=== PATIENT | male | born 1950 | race Caucasian/White ===

== ENCOUNTER 2025-03-31 14:48 | Emergency (ER) | payer MEDICARE ==
[2025-03-31 15:46] LABS: Basophils # (A) 0.06 10*3/uL (0.00-0.10); Basophils % (A) 0.7 %; Eosinophils % (A) 3.6 %; HGB 11.7 g/dL (13.0-17.0); Lymphocytes # (A) 1.27 10*3/uL (0.90-5.00); Lymphocytes % (A) 15.2 %; MCH 31.1 pg (27.0-32.0); MCHC 32.5 g/dL (32.0-37.0); MCV 95.7 fL (80.0-97.0); Monocytes # (A) 0.66 10*3/uL (0.20-1.00); Monocytes % (A) 7.9 %; Neutrophils # (A) 6.02 10*3/uL (1.80-7.70); Neutrophils % (A) 72.1 %; Platelet Count 246 10*3/uL (140-440); RBC 3.76 10*6/uL (4.40-5.60); RDW 14.1 % (11.5-14.5); WBC 8.35 10*3/uL (4.50-10.00)
[2025-03-31 16:00] LABS: INR 1.1 (<1.2); Prothrombin Time 12.1 sec (10.0-12.5)
[2025-03-31 16:04] LABS: Appearance,Urine Clear (Clear); Bilirubin,Urine Negative (Negative); Blood,Urine Negative (Negative); Color,Urine Colorless; Glucose,Urine (UA) Negative (Negative); Ketones,Urine Negative (Negative); Leukocyte Esterase,Urine Negative (Negative); Nitrite,Urine Negative (Negative); PH, Urine 5.5 (5.0-8.0); Protein,Urine Negative (Negative); Specific Gravity,Urine 1.011 (1.001-1.035); Urobilinogen,Urine <2.0 mg/dL (<2.0)
[2025-03-31 16:05] LABS: ALT 20 U/L (4-49); AST 28 U/L (17-59); African American GFR (CKD) 40 (>60 ml/min/1.73 sqM); Albumin 3.8 g/dL (3.5-5.0); Alkaline Phosphatase 38 U/L (38-126); Anion Gap 11 mmol/L; Blood Urea Nitrogen 52 mg/dL (9-20); Calcium 9.4 mg/dL (8.4-10.2); Carbon Dioxide 24 mmol/L (22-30); Chloride 108 mmol/L (98-107); Glucose 117 mg/dL (74-99); Non-African American GFR(CKD) 35 (>60 ml/min/1.73 sqM); Sodium 143 mmol/L (137-145); Total Bilirubin 0.6 mg/dL (0.2-1.3); Total Protein 6.5 g/dL (6.3-8.2)
[2025-03-31 16:15] LABS: NT-Pro-B-Type Natriuretic Pept 468 pg/mL
--- NOTE | 2025-03-31 16:29 | ED ---
General Adult HPI - General Chief complaint: Extremity Problem,Nontraumatic Stated complaint: Swollen Legs Both Time Seen by Provider: 03/31/25 15:15 Source: patient, family, RN notes reviewed, old records reviewed Mode of arrival: ambulatory - History of Present Illness Initial comments: Patient is a 74-year-old male who presents emergency department complaining of b ilateral lower extremity edema. Has been ongoing for 3 weeks. Was placed on Bumex by his PCP over the last couple weeks but no significant improvement. Denies any cough, congestion, shortness of breath, dyspnea, chest pain, abdominal pain, nausea, vomiting. Denies any leg pain. States the left leg is always slightly more swollen than the right leg. No leg edema prior to 3 weeks ago. No new medications. Is not on blood thinners. No recent long distance travel. No history of blood clots. Presents for further evaluation at this time after being sent from urgent care for rule out DVT. Denies any orthopnea, paroxysmal nocturnal dyspnea, exertional dyspnea, nonproductive cough. - Related Data Home Medications Medication Instructions Recorded Confirmed Albuterol Inhaler [Ventolin Hfa 2 puff INHALATION RT-QID PRN 03/31/25 03/31/25 Inhaler] Atorvastatin [Lipitor] 40 mg PO DAILY 03/31/25 03/31/25 Bumetanide [Bumex] 1 mg PO DAILY 03/31/25 03/31/25 Fenofibrate [Lofibra] 160 mg PO DAILY 03/31/25 03/31/25 Fluticasone/Umeclidin/Vilanter 1 puff INHALATION RT-DAILY 03/31/25 03/31/25 [Trelegy Ellipta 200-62.5-25] Ibuprofen [Motrin] 800 mg PO TID-W/MEALS PRN 03/31/25 03/31/25 Lansoprazole 30 mg PO DAILY 03/31/25 03/31/25 Potassium Chloride ER [K-Dur 10] 10 meq PO DAILY 03/31/25 03/31/25 allopurinoL [Zyloprim] 300 mg PO DAILY 03/31/25 03/31/25 amLODIPine BESYLATE/BENAZEPRIL 1 cap PO DAILY 03/31/25 03/31/25 [amLODIPine BESYLATE/BENAZEPRIL 5-10 mg] Allergies Allergy/AdvReac Type Severity Reaction Status Date / Time Penicillins Allergy Rash/Hives Verified 03/31/25 19:09 Review of Systems ROS Statement: Those systems with pertinent positive or pertinent negative responses have been documented in the HPI. Review of Systems: CONST: Denies fever EYES: Denies blurry vision ENT: Denies nasal congestion C/V: Denies Chest pain RESP: Denies shortness of breath GI: Denies abdominal pain : Denies dysuria SKIN: Denies rash. MSK: Endorses leg swelling NEURO: Denies headache ROS Other: All systems not noted in ROS Statement are negative. Past Medical History Past Medical History: Cancer, COPD, Hyperlipidemia, Hypertension Additional Past Medical History / Comment(s): pre diabetic History of Any Multi-Drug Resistant Organisms: None Reported Past Surgical History: Cholecystectomy, Hernia Repair, Prostate Surgery Past Psychological History: No Psychological Hx Reported Smoking Status: Never smoker Past Alcohol Use History: Occasional Past Drug Use History: None Reported General Exam - General Exam Comments Initial Comments: General: Appears in no acute distress. HEAD: Normal with no signs of head trauma. EYES: PERRLA, EOMI, conjunctiva normal, no discharge. ENT: Hearing grossly intact, normal oropharynx. RESPIRATORY: Clear breath sounds bilaterally. No wheezes, rales, or rhonchi. No hypoxia. No respiratory distress. C/V: Regular rate and rhythm. S1 and S2 auscultated, bilateral lower extremity pitting edema up to the level of the knees, left leg worse than right., pe ripheral pulses 2+ and intact throughout ABD: Abd is soft, nontender, nondistended EXT: Normal range of motion, no obvious deformity. Bilateral legs are nontender to palpation. SKIN: No rashes or lesions observed on exposed skin. No skin changes of the legs. No suggestion of cellulitis at this time. NEURO: Alert and oriented x 4. Cranial nerves II-XII intact. No focal sensory or strength deficits. Sensation intact. Neurovascular intact throughout. Course Vital Signs 03/31/25 03/31/25 03/31/25 14:59 16:52 18:00 Temperature 98.1 F Pulse Rate 55 L 50 L 51 L Respiratory 18 20 20 Rate Blood Pressure 114/68 105/66 123/72 O2 Sat by Pulse 96 91 L 92 L Oximetry Medical Decision Making - Medical Decision Making Was pt. sent in by a medical professional or institution (VINNY Pike, APPRAISAL MANAGER, urgent care, hospital, or residential...) When possible be specific @ -Sent from urgent care to evaluate for DVT Did you speak to anyone other than the patient for history (EMS, parent, family, police, friend...)? What history was obtained from this source @ -No Did you review nursing and triage notes (agree or disagree)? Why? @ -I reviewed and agree with nursing and triage notes Were old charts reviewed (outside hosp., previous admission, EMS record, old EKG, old radiological studies, urgent care reports/EKG's, residential records)? Report findings @ -No old charts were reviewed Differential Diagnosis (chest pain, altered mental status, abdominal pain women, abdominal pain men, vaginal bleeding, weakness, fever, dyspnea, syncope, headache, dizziness, GI bleed, back pain, seizure, CVA, palpatations, mental health, musculoskeletal)? @ -DVT, CHF, dependent edema. This list is not all-inclusive. EKG interpreted by me (3pts min.). @ -As above X-rays interpreted by me (1pt min.). @ -Chest x-ray did not reveal any signs of pulmonary vascular congestion or CHF. Elevated left hemidiaphragm. CT interpreted by me (1pt min.). @ -None done U/S interpreted by me (1pt. min.). @ -DVT ultrasound negative for DVT in bilateral lower extremities. Bladder and renal ultrasound shows mild hydronephrosis bilaterally. Likely related to his prostate valve. What testing was considered but not performed or refused? (CT, X-rays, U/S, labs)? Why? @ -None What meds were considered but not given or refused? Why? @ -None Did you discuss the management of the patient with other professionals (professionals i.e. VINNY Pike, APPRAISAL MANAGER, lab, RT, psych nurse, social media editor, door assembler, teacher, property portfolio officer, corrections caseworker)? Give summary @ -No Was smoking cessation discussed for >3mins.? @ -No Was critical care preformed (if so, how long)? @ -No Were there social determinants of health that impacted care today? How? (Homelessness, low income, unemployed, alcoholism, drug addiction, transportation, low edu. Level, literacy, decrease access to med. care, assisted, rehab)? @ -No Was there de-escalation of care discussed even if they declined (Discuss DNR or withdrawal of care, Hospice)? DNR status @ -No What co-morbidities impacted this encounter? (DM, HTN, Smoking, COPD, CAD, Cancer, CVA, ARF, Chemo, Hep., AIDS, mental health diagnosis, sleep apnea, m orbid obesity)? @ -None Was patient admitted / discharged? Hospital course, mention meds given and route, prescriptions, significant lab abnormalities, going to OR and other pertinent info. @ -Patient presents for bilateral lower extremity pitting edema for the last 3 weeks. Somewhat dependent on activity. Has no other symptoms. No concern for PE at this time. Will obtain venous duplex ultrasounds as well as chest x-ray, and laboratory studies evaluating for possible CHF or infectious cause. Exam is unremarkable except for the pitting edema. He was in agreement this plan. Vitals are within acceptable limits. Sent by urgent care. EKG shows no signs of acute ischemia.Imaging returned remarkable for mild symmetrical hydronephrosis likely related to prostate valve. No DVT. No evid ence of CHF on chest x-ray. Laboratory studies returned remarkable for what is likely chronic anemia with a hemoglobin of 11.7. Patient does have an ISAAC with a BUN of 52 and creatinine of 1.84. Patient given a 500 cc fluid bolus for this. Patient is also hypomagnesemic to 1.0 and was given IV magnesium. BNP within acceptable limits. Urine unremarkable. On reevaluation, I discussed the workup with the patient. I do suspect ISAAC is likely related to the Bumex use over the last few weeks. I have no clear diagnosis for the patient's lower extremity edema at this time other than dependent edema. No evidence of CHF, DVT, infection. He expressed understanding. I did recommend he hold his Bumex for the next 2 to 3 days as well as the potassium tablets with it. He should contact his PCP regarding his findings today. I did offer admission however we both agree that if patient feels comfortable going home with close follow-up I think this is reasonable. I did recommend he also take magnesium supplementation for a few days. He needs repeat laboratory studies next week and he understands this. He will follow-up with his PCP on Wednesday. I will give him urology follow-up as he has been unable to get in the office to see his normal urologist. Strict return precautions were discussed. I instructed the patient to follow up with their PCP in the next 1-3 days. I explained that the patient should return to the emergency department if they experience any worsening symptoms. Strict return precautions were discussed with the patient. The patient expressed understanding of these instructions. I answered all questions that the patient had. The patient was discharged home in good condition with their prescriptions and follow up information. Undiagnosed new problem with uncertain prognosis? @ -No Drug Therapy requiring intensive monitoring for toxicity (Heparin, Nitro, Insu mindy, Cardizem)? @ -No Were any procedures done? @ -No Diagnosis/symptom? @ -Dependent edema, ISAAC, hypomagnesemia Acute, or Chronic, or Acute on Chronic? @ -Acute Uncomplicated (without systemic symptoms) or Complicated (systemic symptoms)? @ -Uncomplicated Side effects of treatment? @ -None Exacerbation, Progression, or Severe Exacerbation] @ -No Poses a threat to life or bodily function? @ -Unlikely at this time - Lab Data Result diagrams: 03/31/25 15:34 03/31/25 15:34 Lab Results 03/31/25 03/31/25 03/31/25 Range/Units 15:29 15:34 15:34 WBC 8.35 (4.50-10.00) 10*3/uL RBC 3.76 L (4.40-5.60) 10*6/uL Hgb 11.7 L (13.0-17.0) g/dL Hct 36.0 L (39.6-50.0) % MCV 95.7 (80.0-97.0) fL MCH 31.1 (27.0-32.0) pg MCHC 32.5 (32.0-37.0) g/dL Plt Count 246 (140-440) 10*3/uL MPV 10.0 (9.5-12.2) fL Immature Gran % (Auto) 0.5 % Neutrophils % 72.1 % Lymphocytes % 15.2 % Monocytes % 7.9 % Eosinophils % 3.6 % Basophils % 0.7 % Immature Gran # 0.04 (0.00-0.04) 10*3/uL Neutrophils # 6.02 (1.80-7.70) 10*3/uL Lymphocytes # 1.27 (0.90-5.00) 10*3/uL Monocytes # 0.66 (0.20-1.00) 10*3/uL Eosinophils # 0.30 (0.04-0.35) 10*3/uL Basophils # 0.06 (0.00-0.10) 10*3/uL PT 12.1 (10.0-12.5) sec INR 1.1 (<1.2) APTT 30.0 (22.0-30.0) sec Sodium (137-145) mmol/L Potassium (3.5-5.1) mmol/L Chloride (98-107) mmol/L Carbon Dioxide (22-30) mmol/L Anion Gap mmol/L BUN (9-20) mg/dL Creatinine (0.66-1.25) mg/dL Est GFR (CKD-EPI)AfAm (>60 ml/min/1.73 sqM) Est GFR (CKD-EPI)NonAf (>60 ml/min/1.73 sqM) Glucose (74-99) mg/dL Calcium (8.4-10.2) mg/dL Magnesium (1.6-2.3) mg/dL Total Bilirubin (0.2-1.3) mg/dL AST (17-59) U/L ALT (4-49) U/L Alkaline Phosphatase (38-126) U/L NT-Pro-B Natriuret Pep pg/mL Total Protein (6.3-8.2) g/dL Albumin (3.5-5.0) g/dL Urine Color Colorless Urine Appearance Clear (Clear) Urine pH 5.5 (5.0-8.0) Ur Specific [place] 1.011 (1.001-1.035) Urine Protein Negative (Negative) Urine Glucose (UA) Negative (Negative) Urine Ketones Negative (Negative) Urine Blood Negative (Negative) Urine Nitrite Negative (Negative) Urine Bilirubin Negative (Negative) Urine Urobilinogen <2.0 (<2.0) mg/dL Ur Leukocyte Esterase Negative (Negative) 03/31/25 Range/Units 15:34 WBC (4.50-10.00) 10*3/uL RBC (4.40-5.60) 10*6/uL Hgb (13.0-17.0) g/dL Hct (39.6-50.0) % MCV (80.0-97.0) fL MCH (27.0-32.0) pg MCHC (32.0-37.0) g/dL Plt Count (140-440) 10*3/uL MPV (9.5-12.2) fL Immature Gran % (Auto) % Neutrophils % % Lymphocytes % % Monocytes % % Eosinophils % % Basophils % % Immature Gran # (0.00-0.04) 10*3/uL Neutrophils # (1.80-7.70) 10*3/uL Lymphocytes # (0.90-5.00) 10*3/uL Monocytes # (0.20-1.00) 10*3/uL Eosinophils # (0.04-0.35) 10*3/uL Basophils # (0.00-0.10) 10*3/uL PT (10.0-12.5) sec INR (<1.2) APTT (22.0-30.0) sec Sodium 143 (137-145) mmol/L Potassium 4.0 (3.5-5.1) mmol/L Chloride 108 H (98-107) mmol/L Carbon Dioxide 24 (22-30) mmol/L Anion Gap 11 mmol/L BUN 52 H (9-20) mg/dL Creatinine 1.84 H (0.66-1.25) mg/dL Est GFR (CKD-EPI)AfAm 40 (>60 ml/min/1.73 sqM) Est GFR (CKD-EPI)NonAf 35 (>60 ml/min/1.73 sqM) Glucose 117 H (74-99) mg/dL Calcium 9.4 (8.4-10.2) mg/dL Magnesium 1.0 L (1.6-2.3) mg/dL Total Bilirubin 0.6 (0.2-1.3) mg/dL AST 28 (17-59) U/L ALT 20 (4-49) U/L Alkaline Phosphatase 38 (38-126) U/L NT-Pro-B Natriuret Pep 468 pg/mL Total Protein 6.5 (6.3-8.2) g/dL Albumin 3.8 (3.5-5.0) g/dL Urine Color Urine Appearance (Clear) Urine pH (5.0-8.0) Ur Specific [place] (1.001-1.035) Urine Protein (Negative) Urine Glucose (UA) (Negative) Urine Ketones (Negative) Urine Blood (Negative) Urine Nitrite (Negative) Urine Bilirubin (Negative) Urine Urobilinogen (<2.0) mg/dL Ur Leukocyte Esterase (Negative) - EKG Data -: EKG Interpreted by Me EKG Comments: 12-lead Electrocardiogram Interpretation Note EKG was reviewed and interpreted by myself. 12-lead ECG performed at 1543 is interpreted by me as revealing sinus bradycardia at a rate of 52 beats per minute. Incomplete right bundle branch block. [place] interval is 190 ms, QRS duration is 180 ms, QTc is 476 ms. [place] is normal.. There were no ST or T wave abnormalities to suggest myocardial ischemia or injury. R wave progression across the precordium was satisfactory. By my interpretation this EKG is non- diagnostic for acute ischemia. Disposition Clinical Impression: Dependent edema, ISAAC (acute kidney injury), Hypomagnesemia Disposition: HOME SELF-CARE Condition: Good Additional Instructions: New diagnosis is dependent edema. On labs today, you have a mild ISAAC as well as low magnesium. Your magnesium level was 1.0. Today's creatinine was 1.8. He d id receive some IV fluids, and I do suspect that the Bumex is the cause of your acute kidney injury. Please stop taking this medication for the next 2 days and obtained follow-up laboratory studies with your PCP next week. I will provide you with urology follow-up information. You can also begin taking magnesium tablets for the next 2 days only and obtain repeat labs to check your magnesium level. Stop taking your potassium tablets while you are holding the Bumex. Resume them when you begin taking the Bumex again. Please return to the emergency department for any concerns. Your workup today was negative for DVT, congestive heart failure. No signs of infection of the legs today either. Is patient prescribed a controlled substance at d/c from ED?: No Referrals: Quentin Wright DO [Primary Care Provider] - 1-2 days Dipesh Mckeon MD [STAFF PHYSICIAN] - 1-2 days Time of Disposition: 19:14
--- NOTE | 2025-03-31 17:05 | XR ---
EXAMINATION TYPE: XR chest 2V DATE OF EXAM: 03/31/2025 4:20 PM COMPARISON: None CLINICAL INDICATION: Male, 74 years old with history of leg edema. eval for pulm vasc congestion.; PH H TECHNIQUE: XR chest 2V Frontal and lateral views of the chest. FINDINGS: Lungs/Pleura: Elevated left diaphragm. There is no evidence of pleural effusion, focal consolidation, or pneumothorax. Pulmonary vascularity: Unremarkable. Heart/mediastinum: Cardiomediastinal silhouette is unremarkable. Musculoskeletal: No acute osseous pathology. IMPRESSION: 1. No significant pulmonary vascular congestion. 2. No acute cardiopulmonary disease/process. 3. Elevated left diaphragm. [facility], , 03/31/2025 5:03 PM
[2025-03-31] MEDS: SODIUM CHLORIDE 0.9% 500 ML 500 ML IV ONE (17:24)
[2025-03-31] MEDS: MAGNESIUM SULFATE-D5W PMX 1 GM in DEXTROSE/WATER 1 100ML.BAG IVPB ONE (17:24)
--- NOTE | 2025-03-31 18:50 | US ---
EXAMINATION TYPE: US venous doppler duplex LE BI DATE OF EXAM: 03/31/2025 3:31 PM COMPARISON: NONE CLINICAL INDICATION: Male, 74 years old with history of eval for dvt; Bilateral leg swelling. No red ness. No injury. Not on blood thinners, Pain TECHNIQUE: The lower extremity deep venous system is examined utilizing real time linear array sonog concha with graded compression, color doppler sonography, and spectral doppler. SIDE PERFORMED: Bilateral FINDINGS: VESSELS IMAGED: Common Femoral Vein Deep Femoral Vein Greater Saphenous Vein * Femoral Vein Popliteal Vein Small Saphenous Vein * Proximal Calf Veins (* superficial vessels) Rouleaux flow seen bilaterally Right Leg: Negative for DVT, Color Doppler imaging shows patency of the vessels. Spectral waveforms are within normal limits. Left Leg: Negative for DVT, Color Doppler imaging shows patency of the vessels. Spectral waveforms a re within normal limits. IMPRESSION: No ultrasound evidence for deep venous thrombosis. [facility], , 03/31/2025 6:48 PM
--- NOTE | 2025-03-31 18:52 | US ---
EXAMINATION TYPE: US kidneys/renal and bladder DATE OF EXAM: 03/31/2025 COMPARISON: NONE CLINICAL INDICATION: Male, 74 years old with history of terence; Abnormal labs. Patient has penile pump. TECHNIQUE: Grayscale imaging of the bilateral kidneys and urinary bladder: FINDINGS: EXAM MEASUREMENTS: Right Kidney: 11.9 x 5.5 x 5.4 cm Left Kidney: 12.4 x 5.9 x 6.5 cm Right Kidney: Hydronephrosis Left Kidney: Hydronephrosis. Lateral anechoic lesion = 1.8 x 1.8 x 1.5 cm Bladder: Distended. Anechoic. Anterior penile pump seen. There is no evidence for hydronephrosis at this point in time. No nephrolithiasis is seen. No aristides s are identified. The urinary bladder is anechoic. IMPRESSION: 1. Bilateral hydronephrosis. Correlate for bladder outlet obstruction. 2. Left renal simple appearing cyst. 3. No evidence for renal calculus. [facility], , 03/31/2025 6:49 PM
[2025-03-31 19:31] VITALS: BP 135/93; PULSE 73; RESP 18; TEMP 98
== END 2025-03-31 19:22 | disposition home or self-care (01) ==
LOC: SUPCPDRO 14:48 → EC 14:48
DX: N17.9 Acute kidney failure, unspecified (principal); E83.42 Hypomagnesemia; I45.10 Unspecified right bundle-branch block; R00.1 Bradycardia, unspecified; N13.30 Unspecified hydronephrosis; Z88.0 Allergy status to penicillin
CPT/HCPCS: 36415; 93005; 83880; 80053; 83735; 85025; 85610; 85730; 81003; 71046; 76770; 93970; 99284; 96365; 96366; J3475

== ENCOUNTER → 2025-04-06 | Day surgery (SDC) | payer MEDICARE ==
[~2025-04-06] MED LIST: HYDROmorphone 0.5 MG/0.5 ML SYRINGE IVP PRN; LIDOCAINE 1% INJ 10MG/ML (20 ML MDV) ONE; MIDAZOLAM 2 MG/2 ML VIAL IV PRN; MIDAZOLAM 2 MG/2 ML VIAL ONE; PROPOFOL 10 MG/ML 20 ML VIAL IV ONE; fentaNYL (PF) 50 MCG/ML 2 ML AMP ONE
--- NOTE | 2025-04-06 14:03 | P.GSHP ---
History of Present Illness H&P Date: 04/06/25 Chief Complaint: Weak urinary stream The patient is a 74-year-old white male who underwent a robotic assisted laparoscopic prostatectomy in approximately 2011 for prostate cancer. He received adjuvant radiation therapy and androgen deprivation therapy. He experienced significant post prostatectomy urinary incontinence and underwent insertion of an artificial urinary sphincter shortly thereafter. Cystoscopy in 2019 revealed a urethral stricture, which was dilated. He now feels that it is more difficult to open his artificial sphincter, and also to void before it closes. As a result, he has been found to empty his bladder incompletely and has bilateral hydronephrosis. He denies dysuria and hematuria, but does report a weak urinary stream. - Constitutional Constitutional: Denies chills, Denies fever - Cardiovascular Cardiovascular: Reports high blood pressure - Genitourinary (Male) Genitourinary: Reports as per HPI Past Medical History Past Medical History: Cancer, COPD, Hyperlipidemia, Hypertension, Prostate Disorder Additional Past Medical History / Comment(s): pre diabetic, hx. prostate cancer 2009 History of Any Multi-Drug Resistant Organisms: None Reported Past Surgical History: Cholecystectomy, Hernia Repair, Prostate Surgery Additional Past Surgical History / Comment(s): robotic prostatectomy Past Anesthesia/Blood Transfusion Reactions: No Reported Reaction Smoking Status: Never smoker - Past Family History Father Family Medical History: Congestive Heart Failure (CHF) Mother Family Medical History: Cancer Additional Family Medical History / Comment(s): uterine cancer Brother(s) Family Medical History: Cancer Additional Family Medical History / Comment(s): lung cancer (smoker x 70 yrs) Medications and Allergies Home Medications Medication Instructions Recorded Confirmed Type Albuterol Inhaler [Ventolin Hfa 2 puff INHALATION RT-QID PRN 03/31/25 04/05/25 History Inhaler] Atorvastatin [Lipitor] 40 mg PO DAILY 03/31/25 04/05/25 History Fenofibrate [Lofibra] 160 mg PO DAILY 03/31/25 04/05/25 History Fluticasone/Umeclidin/Vilanter 1 puff INHALATION RT-DAILY 03/31/25 04/05/25 History [Trelegy Ellipta 200-62.5-25] Ibuprofen [Motrin] 800 mg PO TID-W/MEALS PRN 03/31/25 04/05/25 History Lansoprazole 30 mg PO DAILY 03/31/25 04/05/25 History allopurinoL [Zyloprim] 300 mg PO DAILY 03/31/25 04/05/25 History amLODIPine BESYLATE/BENAZEPRIL 1 cap PO DAILY 03/31/25 04/05/25 History [amLODIPine BESYLATE/BENAZEPRIL 5-10 mg] Allergies Allergy/AdvReac Type Severity Reaction Status Date / Time Penicillins Allergy Rash/Hives Verified 04/05/25 09:30 Surgical - Exam - General well developed, well nourished, no distress - Respiratory normal respiratory effort - Abdomen Abdomen: soft, non tender, no guarding, no rigid, no rebound - Psychiatric oriented to time, oriented to person, oriented to place, speech is normal, memory intact Assessment and Plan (1) Unspecified hydronephrosis Current Visit: Yes Status: Acute Code(s): N13.30 - UNSPECIFIED HYDRONEPHROSIS SNOMED Code(s): 65489978 (2) Unspecified urethral stricture, male, overlapping sites Current Visit: Yes Status: Acute Code(s): N35.916 - UNSPECIFIED URETHRAL STRICTURE, MALE, OVERLAPPING SITES SNOMED Code(s): 22552609758056935 (3) Unspecified anterior urethral stricture, male Current Visit: Yes Status: Acute Code(s): N35.914 - UNSPECIFIED ANTERIOR URETHRAL STRICTURE, MALE SNOMED Code(s): 37322184283276026 Plan: Patient will undergo cystourethroscopy to determine whether or not a urethral stricture is present, and also whether or not the artificial urinary sphincter is functioning properly. He will then likely undergo either urethral dilation or a direct visual internal urethrotomy (DVIU). This approach has been reviewed in detail with the patient. He has been made aware of potential risks, which include anesthesia, bleeding, infection, and damage to the artificial urinary sphincter.
[2025-04-06] MEDS: IV FLUID CONTINUATION 1,000 ML IV ONE (14:26)
[2025-04-06] MEDS: ONDANSETRON 4 MG/2 ML VIAL IVP ONE (14:30)
[2025-04-06] MEDS: DEXAMETHASONE SOD PHOSPHATE 4 MG/ML 1 ML VIAL IV ONE (14:30)
[2025-04-06 14:31] LABS: Glucose,Whole Blood 103 mg/dL (70-110)
[2025-04-06] MEDS: LACTATED RINGERS 1,000 ML IV SCH (14:31)
[2025-04-06] MEDS: ceFAZolin 2 GM in DEXTROSE 5% IN WATER 50 ML IVPB ONE (16:01)
[2025-04-06 16:58] VITALS: TEMP 97.2
[2025-04-06 18:56] VITALS: BP 110/72; PULSE 64; RESP 16
--- NOTE | 2025-04-24 07:06 | P.OP ---
Date of Procedure: 04/06/25 Preoperative Diagnosis: Urethral stricture Postoperative Diagnosis: Same Procedure(s) Performed: Cystoscopy, direct visual internal urethrotomy (DVIU) Anesthesia: TIERAA Surgeon: John Garcia Estimated Blood Loss (ml): 0 IV fluids (ml): 400 Pathology: none sent Condition: stable Disposition: PACU Indications for Procedure: The patient is a 74-year-old white male who underwent a robotic assisted laparoscopic prostatectomy in approximately 2011 for prostate cancer. He received adjuvant radiation therapy and androgen deprivation therapy. He experienced significant post prostatectomy urinary incontinence and underwent insertion of an artificial urinary sphincter shortly thereafter. Cystoscopy in 2019 revealed a urethral stricture, which was dilated. He now feels that it is more difficult to open his artificial sphincter, and also to void before it closes. As a result, he has been found to empty his bladder incompletely and has bilateral hydronephrosis. He denies dysuria and hematuria, but does report a weak urinary stream. Operative Findings: Distal bulbous urethral stricture in the area of the artificial urinary sphincter. Description of Procedure: The patient was taken to the operating room and placed in the dorsolithotomy position, with his legs supported in Wesley stirrups. The external genitalia was prepped and draped sterilely. The artificial urinary sphincter was deactivated. The 0 lens was used to advance the visual urethrotome into the urethra. A stricture was encountered within the distal bulbous urethra, measuring approximately 6 Turkish in caliber. Using the straight blade, the stricture was cautiously incised at the 12 o'clock position. This incision exposed the cuff of the artificial urinary sphincter. The visual urethrotome was advanced into the bladder. The prostate was absent. The external urinary sphincter did not appear to be intact. There was no vesical neck contracture. The bladder was examined in its entirety. Both ureteral orifices were of normal anatomic location and configuration, and clear urine effluxed from both. No tumors or foreign bodies were seen. The bladder was distended and heavily trabeculated. A Glidewire was passed through the visual urethrotome, which was removed. A scalpel was used to incise the tip of a 12 Turkish Alvarez catheter, which was inserted over the wire and connected to gravity drainage. The patient tolerated the procedure well was taken to the recovery room in stable condition.
== END | disposition home or self-care (01) ==
LOC: OR 13:56
PROVIDERS: ATTEND Urology
DX: N13.1 Hydronephrosis with ureteral stricture, not elsewhere classified (principal); N40.1 Benign prostatic hyperplasia with lower urinary tract symptoms; R39.12 Poor urinary stream; N39.498 Other specified urinary incontinence; I10 Essential (primary) hypertension; E78.5 Hyperlipidemia, unspecified; J44.9 Chronic obstructive pulmonary disease, unspecified; R73.03 Prediabetes; K21.9 Gastro-esophageal reflux disease without esophagitis; M10.9 Gout, unspecified; Z79.51 Long term (current) use of inhaled steroids; Z79.899 Other long term (current) drug therapy; Z85.46 Personal history of malignant neoplasm of prostate; Z90.79 Acquired absence of other genital organ(s); Z88.0 Allergy status to penicillin; Z80.1 Family history of malignant neoplasm of trachea, bronchus and lung
CPT/HCPCS: 52276; C1769; J2250; J1100; J0690; J2405; J2003; J3010; J2704

== ENCOUNTER 2025-04-07 09:25 | Inpatient (IN) | payer MEDICARE ==
--- NOTE | 2025-04-07 10:02 | ED ---
General Adult HPI - General Chief complaint: Fever Stated complaint: Post op fever Time Seen by Provider: 04/07/25 09:36 Source: patient, RN notes reviewed Mode of arrival: ambulatory Limitations: no limitations - History of Present Illness Initial comments: 74 year old male presents to the ED for evaluation of fevers and cough post-op day 1. He mentions he has had symptoms like this after surgeries in the past and has gone into sepsis. He denies any chest pain, lightheadedness, or SOB at this time. - Related Data Home Medications Medication Instructions Recorded Confirmed Albuterol Inhaler [Ventolin Hfa 2 puff INHALATION RT-QID PRN 03/31/25 04/06/25 Inhaler] Atorvastatin [Lipitor] 40 mg PO DAILY 03/31/25 04/06/25 Fenofibrate [Lofibra] 160 mg PO DAILY 03/31/25 04/06/25 Fluticasone/Umeclidin/Vilanter 1 puff INHALATION RT-DAILY 03/31/25 04/06/25 [Trelegy Ellipta 200-62.5-25] Ibuprofen [Motrin] 800 mg PO TID-W/MEALS PRN 03/31/25 04/06/25 Lansoprazole 30 mg PO DAILY 03/31/25 04/06/25 allopurinoL [Zyloprim] 300 mg PO DAILY 03/31/25 04/06/25 amLODIPine BESYLATE/BENAZEPRIL 1 cap PO DAILY 03/31/25 04/06/25 [amLODIPine BESYLATE/BENAZEPRIL 5-10 mg] Previous Rx's Medication Instructions Recorded Sulfamethox-Tmp 800-160Mg [Bactrim 1 tab PO Q12HR #14 tab 04/06/25 DS 800-160 mg] Allergies Allergy/AdvReac Type Severity Reaction Status Date / Time Penicillins Allergy Rash/Hives Verified 04/07/25 09:31 Review of Systems ROS Statement: Those systems with pertinent positive or pertinent negative responses have been documented in the HPI. ROS Other: All systems not noted in ROS Statement are negative. Past Medical History Past Medical History: Cancer, COPD, Hyperlipidemia, Hypertension, Prostate Disorder Additional Past Medical History / Comment(s): pre diabetic, hx. prostate cancer 2009 History of Any Multi-Drug Resistant Organisms: None Reported Past Surgical History: Cholecystectomy, Hernia Repair, Prostate Surgery Additional Past Surgical History / Comment(s): robotic prostatectomy Past Anesthesia/Blood Transfusion Reactions: No Reported Reaction Past Psychological History: No Psychological Hx Reported Smoking Status: Never smoker Past Alcohol Use History: Occasional Past Drug Use History: None Reported - Past Family History Father Family Medical History: Congestive Heart Failure (CHF) Mother Family Medical History: Cancer Additional Family Medical History / Comment(s): uterine cancer Brother(s) Family Medical History: Cancer Additional Family Medical History / Comment(s): lung cancer (smoker x 70 yrs) General Exam Limitations: no limitations General appearance: alert, in no apparent distress ENT exam: Present: normal exam, mucous membranes moist Respiratory exam: Present: normal lung sounds bilaterally. Absent: respiratory distress, wheezes, rales, rhonchi, stridor Cardiovascular Exam: Present: regular rate, normal rhythm, normal heart sounds. Absent: systolic murmur, diastolic murmur, rubs, gallop, clicks Course Vital Signs 04/07/25 04/07/25 04/07/25 09:28 10:43 12:07 Temperature 99.5 F Pulse Rate 65 68 63 Respiratory 18 23 18 Rate Blood Pressure 147/71 145/86 129/68 O2 Sat by Pulse 94 L 90 L 93 L Oximetry 04/07/25 04/07/25 13:13 14:05 Temperature 100.8 F H Pulse Rate 63 62 Respiratory 19 16 Rate Blood Pressure 119/61 111/57 O2 Sat by Pulse 93 L 97 Oximetry Medical Decision Making - Medical Decision Making Was pt. sent in by a medical professional or institution (, PA, ADMINISTRATIVE OFFICE MANAGER, urgent care, hospital, or prison...) When possible be specific @ -Your just Did you speak to anyone other than the patient for history (EMS, parent, family, police, friend...)? What history was obtained from this source @ -No Did you review nursing and triage notes (agree or disagree)? Why? @ -I reviewed and agree with nursing and triage notes Were old charts reviewed (outside hosp., previous admission, EMS record, old EKG, old radiological studies, urgent care reports/EKG's, prison records)? Report findings @ -No old charts were reviewed Differential Diagnosis (chest pain, altered mental status, abdominal pain women, abdominal pain men, vaginal bleeding, weakness, fever, dyspnea, syncope, headache, dizziness, GI bleed, back pain, seizure, CVA, palpatations, mental he alth, musculoskeletal)? @ -Differential Fever: Pneumonia, viral URI, endocarditis, myocarditis, pericarditis, otitis, sinusitis, peritonsillar Abscess, retropharyngeal Abscess, epiglottitis, peritonitis, appendicitis, Cathy cystitis, diverticulitis, hepatitis, colitis, UTI, PID, TOA, pyelonephritis, prostatitis, epididymitis, meningitis, encephalitis, pulmonary embolism, CVA, thyroid storm, pancreatitis, adrenal crisis, cavernous sinus thrombosis, this is not meant to be an all-inclusive list. EKG interpreted by me (3pts min.). @ -[None X-rays interpreted by me (1pt min.). @ -Chest x-ray shows mild haziness, possible pulmonary edema CT interpreted by me (1pt min.). @ -None done U/S interpreted by me (1pt. min.). @ -None done What testing was considered but not performed or refused? (CT, X-rays, U/S, labs)? Why? @ -None What meds were considered but not given or refused? Why? @ -None Did you discuss the management of the patient with other professionals (professionals i.e. , PA, ADMINISTRATIVE OFFICE MANAGER, lab, RT, psych nurse, medical social consultant, environmental control administrator, teacher, loan workout officer, casework specialist)? Give summary @ -Dr. Garcia evaluated the patient and recommended patient to be admitted for IV antibiotics IV fluids and surgery in the morning. Was smoking cessation discussed for >3mins.? @ -No Was critical care preformed (if so, how long)? @ -No Were there social determinants of health that impacted care today? How? (Homelessness, low income, unemployed, alcoholism, drug addiction, transportation, low edu. Level, literacy, decrease access to med. care, nursing home, rehab)? @ -No Was there de-escalation of care discussed even if they declined (Discuss DNR or withdrawal of care, Hospice)? DNR status @ -No What co-morbidities impacted this encounter? (DM, HTN, Smoking, COPD, CAD, Cancer, CVA, ARF, Chemo, Hep., AIDS, mental health diagnosis, sleep apnea, morbid obesity)? @ -None Was patient admitted / discharged? Hospital course, mention meds given and route, prescriptions, significant lab abnormalities, going to OR and other pertinent info. @ -[Admitted patient presented febrile status post urological procedure yesterday. Patient was given Rocephin blood culture urine culture and laboratory studies were obtained patient eval by urologist in the emergency department will be admitted for further IV antibiotics and surgery in the morning. Undiagnosed new problem with uncertain prognosis? @ -No Drug Therapy requiring intensive monitoring for toxicity (Heparin, Nitro, Insulin, Cardizem)? @ -No Were any procedures done? @ -No Diagnosis/symptom? @ -Fever status post urological procedure Acute, or Chronic, or Acute on Chronic? @ -Acute Uncomplicated (without systemic symptoms) or Complicated (systemic symptoms)? @ -Complicated Side effects of treatment? @ -No Exacerbation, Progression, or Severe Exacerbation? @ -No Poses a threat to life or bodily function? How? (Chest pain, [place], [place], pneumonia, PE, COPD, DKA, ARF, appy, cholecystitis, CVA, Diverticulitis, Homicidal, Suicidal, threat to staff... and all critical care pts) @ -Yes possible sepsis - Lab Data Result diagrams: 04/07/25 10:23 04/07/25 10:23 Lab Results 04/07/25 04/07/25 04/07/25 Range/Units 10:23 10:23 10:23 WBC 9.09 (4.50-10.00) 10*3/uL RBC 4.03 L (4.40-5.60) 10*6/uL Hgb 12.4 L (13.0-17.0) g/dL Hct 38.8 L (39.6-50.0) % MCV 96.3 (80.0-97.0) fL MCH 30.8 (27.0-32.0) pg MCHC 32.0 (32.0-37.0) g/dL Plt Count 209 (140-440) 10*3/uL MPV 10.8 (9.5-12.2) fL Immature Gran % (Auto) 0.3 % Neutrophils % 94.8 % Lymphocytes % 2.6 % Monocytes % 1.7 % Eosinophils % 0.4 % Basophils % 0.2 % Immature Gran # 0.03 (0.00-0.04) 10*3/uL Neutrophils # 8.61 H (1.80-7.70) 10*3/uL Lymphocytes # 0.24 L (0.90-5.00) 10*3/uL Monocytes # 0.15 L (0.20-1.00) 10*3/uL Eosinophils # 0.04 (0.04-0.35) 10*3/uL Basophils # 0.02 (0.00-0.10) 10*3/uL Sodium 142 (137-145) mmol/L Potassium 4.7 (3.5-5.1) mmol/L Chloride 107 (98-107) mmol/L Carbon Dioxide 26 (22-30) mmol/L Anion Gap 9 mmol/L BUN 30 H (9-20) mg/dL Creatinine 1.33 H (0.66-1.25) mg/dL Est GFR (CKD-EPI)AfAm 60 (>60 ml/min/1.73 sqM) Est GFR (CKD-EPI)NonAf 52 (>60 ml/min/1.73 sqM) Glucose 102 H (74-99) mg/dL Plasma Lactic Acid Alexys 1.6 (0.7-2.0) mmol/L Calcium 9.6 (8.4-10.2) mg/dL Total Bilirubin 0.6 (0.2-1.3) mg/dL AST 28 (17-59) U/L ALT 19 (4-49) U/L Alkaline Phosphatase 24 L (38-126) U/L Total Protein 6.8 (6.3-8.2) g/dL Albumin 3.9 (3.5-5.0) g/dL Disposition Clinical Impression: Fever, S/P urethral surgery Disposition: ADMITTED IP TO THIS HOSP Condition: Fair Time of Disposition: 13:38
[2025-04-07] MEDS: ACETAMINOPHEN TAB 325 MG TAB PO STA (10:32)
[2025-04-07] MEDS: IBUPROFEN 600 MG TAB PO STA (10:32)
[2025-04-07] MEDS: SODIUM CHLORIDE 0.9% 1,000 ML IV ONE (10:35)
[2025-04-07 10:39] LABS: Basophils # (A) 0.02 10*3/uL (0.00-0.10); Basophils % (A) 0.2 %; Eosinophils # (A) 0.04 10*3/uL (0.04-0.35); Eosinophils % (A) 0.4 %; HCT 38.8 % (39.6-50.0); HGB 12.4 g/dL (13.0-17.0); Lymphocytes # (A) 0.24 10*3/uL (0.90-5.00); Lymphocytes % (A) 2.6 %; MCH 30.8 pg (27.0-32.0); MCV 96.3 fL (80.0-97.0); Mean Platelet Volume 10.8 fL (9.5-12.2); Monocytes # (A) 0.15 10*3/uL (0.20-1.00); Monocytes % (A) 1.7 %; Neutrophils # (A) 8.61 10*3/uL (1.80-7.70); Neutrophils % (A) 94.8 %; Platelet Count 209 10*3/uL (140-440); RBC 4.03 10*6/uL (4.40-5.60); RDW 13.7 % (11.5-14.5); WBC 9.09 10*3/uL (4.50-10.00)
[2025-04-07 10:58] LABS: ALT 19 U/L (4-49); African American GFR (CKD) 60 (>60 ml/min/1.73 sqM); Albumin 3.9 g/dL (3.5-5.0); Anion Gap 9 mmol/L; Blood Urea Nitrogen 30 mg/dL (9-20); Calcium 9.6 mg/dL (8.4-10.2); Carbon Dioxide 26 mmol/L (22-30); Chloride 107 mmol/L (98-107); Glucose 102 mg/dL (74-99); Non-African American GFR(CKD) 52 (>60 ml/min/1.73 sqM); Sodium 142 mmol/L (137-145); Total Bilirubin 0.6 mg/dL (0.2-1.3); Total Protein 6.8 g/dL (6.3-8.2)
[2025-04-07 11:27] LABS: AST 28 U/L (17-59); Alkaline Phosphatase 24 U/L (38-126); Potassium 4.7 mmol/L (3.5-5.1)
[2025-04-07] MEDS: ONDANSETRON 4 MG/2 ML VIAL IVP STA (11:50)
[2025-04-07] MEDS: SODIUM CHLORIDE 0.9% 1,000 ML IV SCH (11:51)
--- NOTE | 2025-04-07 11:55 | XR ---
EXAMINATION TYPE: XR chest 2V DATE OF EXAM: 04/07/2025 11:37 AM COMPARISON: Chest radiographs from 03/31/2020 TECHNIQUE: XR chest 2V Frontal and lateral views of the chest. CLINICAL INDICATION:Male, 74 years old with history of fever; FINDINGS: Patient is rotated which limits evaluation. Lungs/Pleura: No pneumothorax or pleural effusion. Chronic elevation of the left hemidiaphragm. Incre ased bilateral perihilar opacities. Heart/mediastinum: Cardiomediastinal silhouette is unremarkable. Musculoskeletal: Multiple level degenerative disc disease changes seen throughout the spine. IMPRESSION: Increased perihilar opacities which may represent atypical pneumonia versus pulmonary vascular conges tion. [facility], , 04/07/2025 11:53 AM
[2025-04-07] MEDS ORDERED: NALOXONE 0.4 MG/ML 1 ML VIAL IV PRN (13:38)
[2025-04-07] MEDS ORDERED: ACETAMINOPHEN TAB 325 MG TAB PO PRN (13:38)
[2025-04-07] MEDS ORDERED: ONDANSETRON 4 MG/2 ML VIAL IVP PRN (13:38)
[2025-04-07 14:27] LABS: Appearance,Urine Clear (Clear); Bilirubin,Urine Negative (Negative); Blood,Urine Small (Negative); Color,Urine Colorless; Glucose,Urine (UA) Negative (Negative); Ketones,Urine Negative (Negative); Leukocyte Esterase,Urine Trace (Negative); Nitrite,Urine Negative (Negative); Protein,Urine Negative (Negative); RBC,Urine 44 /hpf (0-5); Specific Gravity,Urine 1.014 (1.001-1.035); Urobilinogen,Urine <2.0 mg/dL (<2.0); WBC,Urine 5 /hpf (0-5)
--- NOTE | 2025-04-07 15:20 | P.GSHP ---
History of Present Illness H&P Date: 04/07/25 Chief Complaint: Fever The patient is a 74-year-old white male who underwent a robotic assisted laparoscopic prostatectomy in approximately 2011 for prostate cancer. He receiv ed adjuvant radiation therapy and androgen deprivation therapy. He experienced significant post prostatectomy urinary incontinence and underwent insertion of an artificial urinary sphincter shortly thereafter. Cystoscopy in 2019 revealed a urethral stricture, which was dilated. He now feels that it is more difficult to open his artificial sphincter, and also to void before it closes. As a resu lt, he has been found to empty his bladder incompletely and has bilateral hydronephrosis. On April 06, he underwent cystourethroscopy. He was found to have a distal bulbous urethral stricture, which was gently incised using the visual urethrotome. The urethral wall was thin, and the artificial urinary sphincter cuff was exposed. A urethral catheter was placed, and the patient was discharged home on oral antibiotics. He had significant urine output overnight, and his lower extremity edema improved. However, he contacted me by phone this morning stating that he was febrile and was experiencing nausea. He was seen in the ER and subsequently admitted. - Constitutional Constitutional: Reports chills, Reports fever - Cardiovascular Cardiovascular: Reports high blood pressure - Gastrointestinal Gastrointestinal: Reports nausea, Denies abdominal pain - Genitourinary (Male) Genitourinary: Reports as per HPI Past Medical History Past Medical History: Cancer, COPD, Hyperlipidemia, Hypertension, Prostate Disorder Additional Past Medical History / Comment(s): pre diabetic, hx. prostate cancer 2009 History of Any Multi-Drug Resistant Organisms: None Reported Past Surgical History: Cholecystectomy, Hernia Repair, Prostate Surgery Additional Past Surgical History / Comment(s): robotic prostatectomy Past Anesthesia/Blood Transfusion Reactions: No Reported Reaction Past Psychological History: No Psychological Hx Reported Smoking Status: Never smoker Past Alcohol Use History: Occasional Past Drug Use History: None Reported - Past Family History Father Family Medical History: Congestive Heart Failure (CHF) Mother Family Medical History: Cancer Additional Family Medical History / Comment(s): uterine cancer Brother(s) Family Medical History: Cancer Additional Family Medical History / Comment(s): lung cancer (smoker x 70 yrs) Medications and Allergies Home Medications Medication Instructions Recorded Confirmed Type Albuterol Inhaler [Ventolin Hfa 2 puff INHALATION RT-QID PRN 03/31/25 04/06/25 History Inhaler] Atorvastatin [Lipitor] 40 mg PO DAILY 03/31/25 04/06/25 History Fenofibrate [Lofibra] 160 mg PO DAILY 03/31/25 04/06/25 History Fluticasone/Umeclidin/Vilanter 1 puff INHALATION RT-DAILY 03/31/25 04/06/25 History [Trelegy Ellipta 200-62.5-25] Ibuprofen [Motrin] 800 mg PO TID-W/MEALS PRN 03/31/25 04/06/25 History Lansoprazole 30 mg PO DAILY 03/31/25 04/06/25 History allopurinoL [Zyloprim] 300 mg PO DAILY 03/31/25 04/06/25 History amLODIPine BESYLATE/BENAZEPRIL 1 cap PO DAILY 03/31/25 04/06/25 History [amLODIPine BESYLATE/BENAZEPRIL 5-10 mg] Sulfamethox-Tmp 800-160Mg [Bactrim 1 tab PO Q12HR #14 tab 04/06/25 Rx DS 800-160 mg] Allergies Allergy/AdvReac Type Severity Reaction Status Date / Time Penicillins Allergy Rash/Hives Verified 04/07/25 09:31 Surgical - Exam Vital Signs Temp Pulse Resp BP Pulse Ox 99.5 F 65 18 147/71 94 L 04/07/25 09:28 04/07/25 09:28 04/07/25 09:28 04/07/25 09:28 04/07/25 09:28 - General well developed, well nourished, no distress - Respiratory normal respiratory effort - Abdomen Soft, non-tender, non-distended. - Genitourinary Normal phallus, normal scrotum, normal testes. - Psychiatric oriented to time, oriented to person, oriented to place, speech is normal, memory intact Results - Labs 04/07/25 10:23 04/07/25 10:23 Abnormal Lab Results - Last 24 Hours (Table) 04/07/25 04/07/25 04/07/25 Range/Units 10:23 10:23 14:05 RBC 4.03 L (4.40-5.60) 10*6/uL Hgb 12.4 L (13.0-17.0) g/dL Hct 38.8 L (39.6-50.0) % Neutrophils # 8.61 H (1.80-7.70) 10*3/uL Lymphocytes # 0.24 L (0.90-5.00) 10*3/uL Monocytes # 0.15 L (0.20-1.00) 10*3/uL BUN 30 H (9-20) mg/dL Creatinine 1.33 H (0.66-1.25) mg/dL Glucose 102 H (74-99) mg/dL Alkaline Phosphatase 24 L (38-126) U/L Urine Blood Small H (Negative) Ur Leukocyte Esterase Trace H (Negative) Urine RBC 44 H (0-5) /hpf Diabetes panel 04/07/25 Range/Units 10:23 Sodium 142 (137-145) mmol/L Potassium 4.7 (3.5-5.1) mmol/L Chloride 107 (98-107) mmol/L Carbon Dioxide 26 (22-30) mmol/L BUN 30 H (9-20) mg/dL Creatinine 1.33 H (0.66-1.25) mg/dL Glucose 102 H (74-99) mg/dL Calcium 9.6 (8.4-10.2) mg/dL AST 28 (17-59) U/L ALT 19 (4-49) U/L Alkaline Phosphatase 24 L (38-126) U/L Total Protein 6.8 (6.3-8.2) g/dL Albumin 3.9 (3.5-5.0) g/dL Calcium panel 04/07/25 Range/Units 10:23 Calcium 9.6 (8.4-10.2) mg/dL Albumin 3.9 (3.5-5.0) g/dL Pituitary panel 04/07/25 Range/Units 10:23 Sodium 142 (137-145) mmol/L Potassium 4.7 (3.5-5.1) mmol/L Chloride 107 (98-107) mmol/L Carbon Dioxide 26 (22-30) mmol/L BUN 30 H (9-20) mg/dL Creatinine 1.33 H (0.66-1.25) mg/dL Glucose 102 H (74-99) mg/dL Calcium 9.6 (8.4-10.2) mg/dL Adrenal panel 04/07/25 Range/Units 10:23 Sodium 142 (137-145) mmol/L Potassium 4.7 (3.5-5.1) mmol/L Chloride 107 (98-107) mmol/L Carbon Dioxide 26 (22-30) mmol/L BUN 30 H (9-20) mg/dL Creatinine 1.33 H (0.66-1.25) mg/dL Glucose 102 H (74-99) mg/dL Calcium 9.6 (8.4-10.2) mg/dL Total Bilirubin 0.6 (0.2-1.3) mg/dL AST 28 (17-59) U/L ALT 19 (4-49) U/L Alkaline Phosphatase 24 L (38-126) U/L Total Protein 6.8 (6.3-8.2) g/dL Albumin 3.9 (3.5-5.0) g/dL Assessment and Plan (1) Unspecified anterior urethral stricture, male Current Visit: No Status: Acute Code(s): N35.914 - UNSPECIFIED ANTERIOR URETHRAL STRICTURE, MALE SNOMED Code(s): [id number] Plan: The patient has been admitted and received ceftriaxone. He is scheduled to undergo removal of the artificial urinary sphincter on April 08, 2025 along with open insertion of a suprapubic cystostomy tube. This has been reviewed in detail with the patient and his . The rationale for this was discussed, as were potential risks which include anesthesia, bleeding, and infection. He will be referred to Dr. Porter Evans for urethral evaluation once he has recovered from surgery. It will then be determined whether or not he will require any additional treatment for urethral stricture disease, and consideration will then be given to replacement of the artificial urinary sphincter.
[2025-04-07 19:34] LABS: African American GFR (CKD) 51 (>60 ml/min/1.73 sqM); Anion Gap 7 mmol/L; Blood Urea Nitrogen 27 mg/dL (9-20); Calcium 8.9 mg/dL (8.4-10.2); Carbon Dioxide 23 mmol/L (22-30); Chloride 107 mmol/L (98-107); Glucose 123 mg/dL (74-99); Non-African American GFR(CKD) 44 (>60 ml/min/1.73 sqM); Potassium 3.8 mmol/L (3.5-5.1); Sodium 137 mmol/L (137-145)
[2025-04-08] MEDS ORDERED: NEOSTIGMINE 1 MG/ML 10 ML VIAL ONE (08:50)
[2025-04-08] MEDS ORDERED: ROCURONIUM 10 MG/ML (5 ML VIAL) IV ONE (08:50)
[2025-04-08] MEDS ORDERED: ALBUTEROL HFA INHALER INHALATION ONE (08:50)
[2025-04-08] MEDS ORDERED: PROPOFOL 10 MG/ML 20 ML VIAL IV ONE (08:50)
[2025-04-08] MEDS ORDERED: fentaNYL (PF) 50 MCG/ML 2 ML AMP ONE (08:50)
[2025-04-08] MEDS ORDERED: ONDANSETRON 4 MG/2 ML VIAL ONE (08:50)
[2025-04-08] MEDS ORDERED: LIDOCAINE 1% INJ 10MG/ML (20 ML MDV) ONE (08:50)
[2025-04-08] MEDS ORDERED: ACETAMINOPHEN IV (For NPO) 1,000 MG/100 ML VIAL ONE (08:50)
[2025-04-08] MEDS ORDERED: PHENYLEPHRINE 10 MG/ML VIAL ONE (08:50)
[2025-04-08] MEDS ORDERED: GLYCOPYRROLATE 0.2 MG/ML 2 ML VIAL ONE (08:50)
[2025-04-08] MEDS: SODIUM CHLORIDE 0.9% 1,000 ML IV ONE ×2 (08:55→10:07)
[2025-04-08] MEDS: ceFAZolin 1,000 MG in SODIUM CHLORIDE 0.9% 1,000 ML IRRIGATION ONE (10:12)
[2025-04-08] MEDS ORDERED: SODIUM CHLORIDE 0.9% 1,000 ML BAG ONE (10:39)
[2025-04-08] MEDS: IPRATROPIUM-ALBUTEROL 3 ML NEB INHALATION STA (13:12)
--- NOTE | 2025-04-08 20:07 | P.OP ---
Date of Procedure: 04/08/25 Preoperative Diagnosis: Urethral stricture, urinary retention, infected artificial urinary sphincter Postoperative Diagnosis: Same Procedure(s) Performed: Removal of artificial urinary sphincter, open insertion of suprapubic cystostomy tube Anesthesia: JEREMIAH Surgeon: John Garcia Estimated Blood Loss (ml): 20 IV fluids (ml): 800 Pathology: none sent Condition: stable Disposition: PACU Indications for Procedure: The patient is a 74-year-old white male who underwent a robotic assisted laparoscopic prostatectomy in approximately 2011 for prostate cancer. He received adjuvant radiation therapy and androgen deprivation therapy. He experienced significant post prostatectomy urinary incontinence and underwent insertion of an artificial urinary sphincter shortly thereafter. Cystoscopy in 2019 revealed a urethral stricture, which was dilated. He now feels that it is more difficult to open his artificial sphincter, and also to void before it closes. As a result, he has been found to empty his bladder incompletely and has bilateral hydronephrosis. On April 06, he underwent cystourethroscopy. He was found to have a distal bulbous urethral stricture, which was gently incised using the visual urethrotome. The urethral wall was thin, and the artificial urinary sphincter cuff was exposed. A urethral catheter was placed, and the patient was discharged home on oral antibiotics. He had significant urine output overnight, and his lower extremity edema improved. However, he developed a fever and was admitted. He has received IV antibiotics and now comes for removal of the artificial urinary sphincter and urethral catheter, with placement of a suprapubic cystostomy tube. Operative Findings: Successful removal of artificial urinary sphincter with SP tube insertion. Description of Procedure: The patient was taken to the operating room and placed in the dorsolithotomy position, with his legs supported in Wesley prescription. The external genitalia and abdomen were prepped and draped sterilely. The Alvarez catheter was left in place, also prepped with Betadine solution. The scalpel was used to make a midline incision through the posterior scrotum extending into the perineum. Dissection was continued in the midline using the Bovie electrocautery, down to the artificial urinary sphincter cuff. The cuff was exposed and from the urethra. The tubing to the cuff was then dissected toward the right scrotal neck. This dissection was continued as far as possible, and attention was then paid to the pump. Dissection using the Bovie electrocautery exposed the pump, and this also was dissected toward the right scrotal neck. The scalpel was used to make a transverse skin incision just above the pubis. Through this incision, it was possible to identify the tubing going to the fluid reservoir. The tubing was dissected away from adjacent tissues. The tubing was then cut, allowing the cuff and pump to be removed. The reservoir was deflated, and a small opening was made in the fascia, allowing removal of the reservoir. Attention was then paid to placement of the suprapubic cystostomy tube. The linea alba was incised in the midline via a vertical incision. Dissection was carried down through the pseudocapsule of the reservoir, toward the bladder. 0.9 normal saline was injected through the Alvarez catheter to distend the bladder, but fluid tended to leak out per urethra alongside the catheter. The peritoneum was entered, and it was evident at this time that the peritoneum extended very far distally, essentially draping over the bladder. Using a [place] of sharp and blunt dissection, the peritoneum was mobilized off of the anterior bladder wall, particularly on the right side. A small skin incision was made in the midline, approximately 2 cm cephalad to the transverse skin incision. An 18 [place] Alvarez catheter was passed through the anterior abdominal wall. A small cystotomy incision was then made in the right anterior bladder wall, through which the Alvarez catheter was advanced and the Alvarez catheter balloon inflated. The cystotomy incision was then closed using 3-0 Vicryl suture in a running fashion on the mucosa, and the muscle was closed using a 2-0 Vicryl suture in a running fashion. 3-0 Vicryl suture was then placed in the bladder wall around the catheter in a pursestring fashion. Next, the 2 peritoneal incisions were closed using 3-0 Vicryl suture in a running fashion. Thus, the suprapubic tube was completely extraperitoneal. After placing the suprapubic tube, the urethral catheter was removed. Both the abdominal wound and the perineal wound were irrigated with antibiotic solution. A Eugene drain was left within the space of Retzius and brought out through a separate stab incision to the right of the midline. A second Eugene drain was left within the scrotum and brought out through the anterior aspect of the scrotal perineal incision. The abdominal [place] drain was secured to the skin using 2-0 silk suture. The perineal drain was secured to the skin using 3-0 Vicryl suture. The linea alba was closed using #1 PDS suture in a running fashion. Angeline's fascia was reapproximated using 3-0 Vicryl suture in a running fashion. The skin was closed using naun. The perineal wound was closed by reapproximating the subcutaneous tissues in the midline using 3-0 Vicryl suture in a running fashion. The skin was then closed using 3-0 Vicryl suture in a running subcuticular fashion. A sterile gauze dressing was applied over the abdominal incision. Surgical fluffs were placed over the perineal incision, followed by scrotal support. All sponge and needle counts were correct. The suprapubic tube was connected to gravity drainage, and was draining clear urine. The patient tolerated the procedure well and was taken to the recovery in stable condition.
[2025-04-08] MEDS ORDERED: ALBUTEROL NEBULIZED 2.5 MG/3 ML INHALATION PRN (20:29)
[2025-04-08] MEDS ORDERED: IBUPROFEN 800 MG TAB PO PRN (20:29)
[2025-04-08] MEDS: ATORVASTATIN 40 MG TAB PO SCH (21:12)
[2025-04-08] MEDS: amLODIPine 5 MG TAB PO SCH (21:12)
[2025-04-08] MEDS: FENOFIBRATE 160 MG TAB PO SCH (21:12)
[2025-04-08] MEDS: PANTOPRAZOLE 40 MG TABLET PO SCH (21:13)
[2025-04-08] MEDS: allopurinoL 300 MG TAB PO SCH (21:13)
[2025-04-08] MEDS: lisinopriL 10 MG TAB PO SCH (21:13)
[2025-04-09] MEDS: HYDROmorphone 1 MG/ML 1 ML SYRINGE IVP PRN (03:50)
[2025-04-09] MEDS: TIOTROPIUM 2.5 MCG INHALER INHALATION SCH (05:57)
[2025-04-09] MEDS: SYMBICORT 160-4.5 MCG INHALER INHALATION SCH (05:58)
[2025-04-09 10:17] LABS: Basophils # (A) 0.03 X 10*3/uL (0.00-0.10); Basophils % (A) 0.8 %; Eosinophils # (A) 0 X 10*3/uL (0.04-0.35); Eosinophils % (A) 0 %; HCT 38.4 % (39.6-50.0); Lymphocytes # (A) 0.31 X 10*3/uL (0.90-5.00); Lymphocytes % (A) 8.2 %; MCH 30.6 pg (27.0-32.0); MCHC 31.3 g/dL (32.0-37.0); Mean Platelet Volume 11.8 FL (9.5-12.2); Monocytes # (A) 0.12 X 10*3/uL (0.20-1.00); Monocytes % (A) 3.2 %; NRBC Per 100 WBC 0 X 10*3/uL (0.00-0.01); Platelet Count 136 X 10*3/uL (140-440); RBC 3.92 X 10*6/uL (4.40-5.60); RDW 14.2 % (11.5-14.5); WBC 3.79 X 10*3/uL (4.50-10.00)
[2025-04-09 10:29] LABS: BUN/Creat Ratio 13.13 Ratio (12.00-20.00); Blood Urea Nitrogen 19.7 mg/dL (9.0-27.0); Calcium 7.6 mg/dL (8.7-10.3); Carbon Dioxide 20.2 mmol/L (21.6-31.8); Chloride 108 mmol/L (96-109); Glucose 105 mg/dL (70-110); Potassium 3.6 mmol/L (3.5-5.5); Sodium 139 mmol/L (135-145)
--- NOTE | 2025-04-09 12:54 | P.PN ---
Subjective Progress Note Date: 04/09/25 Principal diagnosis: POD #1, s/p removal of AUS with SP tube placement The patient is feeling somewhat better today, though weak. He experienced difficulty ambulating yesterday and has not yet attempted today. He is not voiding per urethra. He reports constipation. Objective - Vital Signs Vital signs: Vital Signs Temp 98.8 F 04/09/25 07:18 Pulse 74 04/09/25 07:18 Resp 18 04/09/25 07:18 BP 129/78 04/09/25 07:18 Pulse Ox 92 L 04/09/25 07:18 FiO2 Intake & Output 04/08/25 04/09/25 04/09/25 18:59 06:59 18:59 Intake Total 1921 1620 Output Total 20 1175 Balance 1901 445 Intake: IV 1401 Intake, IV Titration 520 Amount Sodium Chloride 0.9% 1, 520 000 ml @ 130 mls/hr IV . Q7H42M [facility] Rx#:[id number] Oral 1620 Output: Urine 1175 Estimated Blood Loss 20 Other: Voiding Method Indwelling Catheter Indwelling Catheter - Constitutional General appearance: Present: average body habitus, cooperative, no acute distress - Cardiovascular Details: Lower extremity edema has virtually resolved. - Gastrointestinal Gastrointestinal Comment(s): Soft, non-distended. Incision clean, dry, and intact. Minimal serosanguineous [place] drainage. - Genitourinary Genitourinary Comment(s): Incision clean, dry, and intact. Mild serosanguineous [place] drainage. No significant scrotal edema. Testes normal. - Labs CBC & Chem 7: 04/09/25 06:09 04/09/25 06:09 Labs: Abnormal Lab Results - Last 24 Hours (Table) 04/09/25 04/09/25 Range/Units 06:09 06:09 WBC 3.79 L (4.50-10.00) X 10*3/uL RBC 3.92 L (4.40-5.60) X 10*6/uL Hgb 12.0 L (13.0-17.0) g/dL Hct 38.4 L (39.6-50.0) % MCV 98.0 H (80.0-97.0) FL MCHC 31.3 L (32.0-37.0) g/dL Plt Count 136 L (140-440) X 10*3/uL Lymphocytes # 0.31 L (0.90-5.00) X 10*3/uL Monocytes # 0.12 L (0.20-1.00) X 10*3/uL Eosinophils # 0 L (0.04-0.35) X 10*3/uL Carbon Dioxide 20.2 L (21.6-31.8) mmol/L Est GFR (CKD-EPI) 48 L (>=60) Calcium 7.6 L (8.7-10.3) mg/dL Microbiology - Last 24 Hours (Table) 04/07/25 10:05 Blood Culture - Preliminary Blood 04/07/25 10:23 Blood Culture - Preliminary Blood Assessment and Plan (1) Unspecified anterior urethral stricture, male Current Visit: No Status: Acute Code(s): N35.914 - UNSPECIFIED ANTERIOR URETHRAL STRICTURE, MALE SNOMED Code(s): 40865170388956350 Plan: Continue Rocephin. It was explained to the patient that his constipation is likely due to an ileus, and MiraLAX has been prescribed. Increase ambulation.
[2025-04-09] MEDS ORDERED: DOCUSATE 100 MG CAP PO SCH (13:00)
[2025-04-09] MEDS: polyethylene glycoL 3350 17 GM POWD.PACK PO SCH (13:20)
--- NOTE | 2025-04-09 14:07 | P.CONS ---
History of Present Illness - Reason for Consult Consult date: 04/09/25 Medical management - History of Present Illness History of present illness; 74-year-old gentleman with past medical history significant for prostate cancer status post laparoscopic prostatectomy in 2011, who recently underwent cystourethroscopy on April 06 and was found o have a distal bulbous urethral stricture, which was gently incised using the visual urethrotome. Patient was discharged by urology on oral antibiotics. Patient stated ever since her discharge he started having nausea and was having fevers at home. There was no complaint of hematuria..There is no complaint of shortness of breath. Patient denies any palpitation. There is no complaint of orthopnea or PND. Denies any nausea, vomiting abdominal pain. Patient denies any complaint of dizziness. There is no complaint of headache. Because of the symptoms, patient came to the ER Initial lab work done in the ER showed WBC 9.9, hemoglobin 12.4, platelet count 209, sodium 142, potassium 4.7, BUN 30, creatinine 1.33 Chest x-ray done in the ER Increased perihilar opacities may present atypical pneumonia versus pulmonary congestion Patient admitted to urology REVIEW OF SYSTEMS: CONSTITUTIONAL: As mentioned above HEENT: No recent visual problems or hearing problems. Denied any sore throat. CARDIOVASCULAR: No chest pain, orthopnea, PND, no palpitations, no syncope. PULMONARY: No shortness of breath, no cough, no hemoptysis. GASTROINTESTINAL: No diarrhea, no nausea, no vomiting, no abdominal pain. NEUROLOGICAL: No headaches, no weakness, no numbness. HEMATOLOGICAL: Denies any bleeding or petechiae. GENITOURINARY: As mentioned above MUSCULOSKELETAL/RHEUMATOLOGICAL: Denies any joint pain, swelling, or any muscle pain. ENDOCRINE: Denies any polyuria or polydipsia. The rest of the 14-point review of systems is negative. PHYSICAL EXAMINATION: GENERAL: The patient is alert and oriented x3, not in any acute distress. Well developed, well nourished. HEENT: Pupils are round and equally reacting to light. EOMI. No scleral icterus. No conjunctival pallor. Normocephalic, atraumatic. No pharyngeal erythema. No thyromegaly. CARDIOVASCULAR: S1 and S2 present. No murmurs, rubs, or gallops. PULMONARY: Chest is clear to auscultation, no wheezing or crackles. ABDOMEN: Soft, nontender, nondistended, normoactive bowel sounds. No palpable organomegaly. MUSCULOSKELETAL: No joint swelling or deformity. EXTREMITIES: No cyanosis, clubbing, or pedal edema. NEUROLOGICAL: Gross neurological examination did not reveal any focal deficits. SKIN: No rashes. Assessment and plan Postoperative fevers Bacterial pneumonia Urethral stricture Monitor vital signs Monitor CBC Monitor CMP Follow-up blood cultures Follow-up on urine culture Continue IV Rocephin, added doxycycline DC fluids Consult ID Labs and medication were reviewed.. Continue same treatment. Continue with symptomatic treatment. Resume home medication. Monitor labs and vitals. DVT and GI prophylaxis. Further recommendations as per clinical course of the patient Dictation was produced using [employer] dictation software. please excuse any grammatical, word or spelling errors. Past Medical History Past Medical History: Cancer, COPD, Hyperlipidemia, Hypertension, Prostate Disorder Additional Past Medical History / Comment(s): pre diabetic, hx. prostate cancer 2009 History of Any Multi-Drug Resistant Organisms: None Reported Past Surgical History: Cholecystectomy, Hernia Repair, Prostate Surgery Additional Past Surgical History / Comment(s): robotic prostatectomy Past Anesthesia/Blood Transfusion Reactions: No Reported Reaction Past Psychological History: No Psychological Hx Reported Smoking Status: Never smoker Past Alcohol Use History: Occasional Past Drug Use History: None Reported - Past Family History Father Family Medical History: Congestive Heart Failure (CHF) Mother Family Medical History: Cancer Additional Family Medical History / Comment(s): uterine cancer Brother(s) Family Medical History: Cancer Additional Family Medical History / Comment(s): lung cancer (smoker x 70 yrs) Medications and Allergies Home Medications Medication Instructions Recorded Confirmed Type Albuterol Inhaler [Ventolin Hfa 2 puff INHALATION RT-QID PRN 03/31/25 04/07/25 History Inhaler] Atorvastatin [Lipitor] 40 mg PO DAILY 03/31/25 04/07/25 History Fenofibrate [Lofibra] 160 mg PO DAILY 03/31/25 04/07/25 History Fluticasone/Umeclidin/Vilanter 1 puff INHALATION RT-DAILY 03/31/25 04/07/25 History [Trelegy Ellipta 200-62.5-25] Ibuprofen [Motrin] 800 mg PO TID-W/MEALS PRN 03/31/25 04/07/25 History Lansoprazole 30 mg PO DAILY 03/31/25 04/07/25 History allopurinoL [Zyloprim] 300 mg PO DAILY 03/31/25 04/07/25 History amLODIPine BESYLATE/BENAZEPRIL 1 cap PO DAILY 03/31/25 04/07/25 History [amLODIPine BESYLATE/BENAZEPRIL 5-10 mg] Sulfamethox-Tmp 800-160Mg [Bactrim 1 tab PO Q12HR #14 tab 04/06/25 04/07/25 Rx DS 800-160 mg] Allergies Allergy/AdvReac Type Severity Reaction Status Date / Time Penicillins Allergy Rash/Hives Verified 04/07/25 15:39 Physical Exam Vitals: Vital Signs Temp Pulse Resp BP Pulse Ox 04/09/25 07:18 98.8 F 74 18 129/78 92 L 04/09/25 00:25 98.8 F 76 17 152/86 91 L 04/08/25 20:00 16 04/08/25 19:39 99.7 F H 75 18 144/69 90 L 04/08/25 16:38 77 130/67 93 L 04/08/25 16:08 80 154/72 93 L 04/08/25 15:54 80 130/69 91 L 04/08/25 15:40 81 172/81 88 L 04/08/25 15:24 71 121/56 89 L 04/08/25 15:10 71 90/56 89 L 04/08/25 14:54 67 101/54 83 L 04/08/25 14:40 97.5 F L 68 16 96/64 87 L Intake and Output 04/08/25 04/09/25 04/09/25 22:59 06:59 14:59 Intake Total 520 1620 Output Total 1175 Balance 520 445 Intake: Intake, IV Titration 520 Amount Sodium Chloride 0.9% 1, 520 000 ml @ 130 mls/hr IV . Q7H42M [facility] Rx#:[id number] Oral 1620 Output: Urine 1175 Other: Voiding Method Indwelling Catheter Results CBC & Chem 7: 04/09/25 06:09 04/09/25 06:09 Labs: Abnormal Lab Results - Last 24 Hours (Table) 04/09/25 04/09/25 Range/Units 06:09 06:09 WBC 3.79 L (4.50-10.00) X 10*3/uL RBC 3.92 L (4.40-5.60) X 10*6/uL Hgb 12.0 L (13.0-17.0) g/dL Hct 38.4 L (39.6-50.0) % MCV 98.0 H (80.0-97.0) FL MCHC 31.3 L (32.0-37.0) g/dL Plt Count 136 L (140-440) X 10*3/uL Lymphocytes # 0.31 L (0.90-5.00) X 10*3/uL Monocytes # 0.12 L (0.20-1.00) X 10*3/uL Eosinophils # 0 L (0.04-0.35) X 10*3/uL Carbon Dioxide 20.2 L (21.6-31.8) mmol/L Est GFR (CKD-EPI) 48 L (>=60) Calcium 7.6 L (8.7-10.3) mg/dL Microbiology - Last 24 Hours (Table) 04/07/25 10:05 Blood Culture - Preliminary Blood 04/07/25 10:23 Blood Culture - Preliminary Blood
[2025-04-09 20:26] LABS: Appearance,Urine Cloudy (Clear); Bilirubin,Urine Negative (Negative); Blood,Urine Moderate (Negative); Budding Yeast,Urine Rare /hpf; Color,Urine Yellow; Glucose,Urine (UA) Negative (Negative); Granular Casts,Urine 3 /lpf (0); Ketones,Urine Negative (Negative); Leukocyte Esterase,Urine Negative (Negative); Mucus,Urine Rare /hpf; Nitrite,Urine Negative (Negative); PH, Urine 5.5 (5.0-8.0); Protein,Urine 1+ (Negative); RBC,Urine 132 /hpf (0-5); Specific Gravity,Urine 1.021 (1.001-1.035); Squamous Epithelial Cell,Urine <1 /hpf (0-4); WBC,Urine 7 /hpf (0-5)
[2025-04-09] MEDS: DOXYCYCLINE 100 MG TABLET PO SCH (20:40)
--- NOTE | 2025-04-09 22:53 | P.CONS ---
History of Present Illness - Reason for Consult Consult date: 04/09/25 Complicated UTI Requesting physician: Brayden Merida - Chief Complaint Fever x 1 day - History of Present Illness Patient is a 74-year-old male with a past medical he significant for COPD hypertension hyperlipidemia prostate cancer diagnosed in 2023 the patient underwent laparoscopic prostatectomy and androgen deprivation therapy patient did have significant urinary incontinence postsurgery and underwent insertion of a artificial urinary sphincter subsequently did have a urethral stricture requiring dilatation in this patient who recently underwent cystourethroscopy on 04/06/2025 and did have a urethral catheter placement subsequent to the patient developing a fever for the patient was advised to come to the hospital on arrival to the ER on 04/07/2025 patient did have temperature 100.8 F patient was nontachycardic hypertensive mildly hypoxic currently on 3 L nasal cannula oxygen he did have a white count of 9.09 BUN and creatinine has been mild elevated u rine has been positive cultures currently pending patient did underwent repeat cystoscopy on 04/08/2025 patient status post removal of the artificial urinary sphincter and open insertion of suprapubic cystotomy tube patient was started on ceftriaxone infectious was consulted today for further management of antibiotic therapy Review of Systems Positive point and negatives has been mentioned in the HPI, complete review of systems was performed and all other systems are negative Past Medical History Past Medical History: Cancer, COPD, Hyperlipidemia, Hypertension, Prostate Disorder Additional Past Medical History / Comment(s): pre diabetic, hx. prostate cancer 2009 History of Any Multi-Drug Resistant Organisms: None Reported Past Surgical History: Cholecystectomy, Hernia Repair, Prostate Surgery Additional Past Surgical History / Comment(s): robotic prostatectomy Past Anesthesia/Blood Transfusion Reactions: No Reported Reaction Past Psychological History: No Psychological Hx Reported Smoking Status: Never smoker Past Alcohol Use History: Occasional Past Drug Use History: None Reported - Past Family History Father Family Medical History: Congestive Heart Failure (CHF) Mother Family Medical History: Cancer Additional Family Medical History / Comment(s): uterine cancer Brother(s) Family Medical History: Cancer Additional Family Medical History / Comment(s): lung cancer (smoker x 70 yrs) Medications and Allergies Home Medications Medication Instructions Recorded Confirmed Type Albuterol Inhaler [Ventolin Hfa 2 puff INHALATION RT-QID PRN 03/31/25 04/07/25 History Inhaler] Atorvastatin [Lipitor] 40 mg PO DAILY 03/31/25 04/07/25 History Fenofibrate [Lofibra] 160 mg PO DAILY 03/31/25 04/07/25 History Fluticasone/Umeclidin/Vilanter 1 puff INHALATION RT-DAILY 03/31/25 04/07/25 History [Trelegy Ellipta 200-62.5-25] Ibuprofen [Motrin] 800 mg PO TID-W/MEALS PRN 03/31/25 04/07/25 History Lansoprazole 30 mg PO DAILY 03/31/25 04/07/25 History allopurinoL [Zyloprim] 300 mg PO DAILY 03/31/25 04/07/25 History amLODIPine BESYLATE/BENAZEPRIL 1 cap PO DAILY 03/31/25 04/07/25 History [amLODIPine BESYLATE/BENAZEPRIL 5-10 mg] Sulfamethox-Tmp 800-160Mg [Bactrim 1 tab PO Q12HR #14 tab 04/06/25 04/07/25 Rx DS 800-160 mg] Allergies Allergy/AdvReac Type Severity Reaction Status Date / Time Penicillins Allergy Rash/Hives Verified 04/07/25 15:39 Physical Exam Vitals: Vital Signs Temp Pulse Resp BP Pulse Ox 04/09/25 14:00 97.3 F L 68 18 118/76 96 04/09/25 07:18 98.8 F 74 18 129/78 92 L 04/09/25 00:25 98.8 F 76 17 152/86 91 L 04/08/25 20:00 16 04/08/25 19:39 99.7 F H 75 18 144/69 90 L 04/08/25 16:38 77 130/67 93 L 04/08/25 16:08 80 154/72 93 L 04/08/25 15:54 80 130/69 91 L 04/08/25 15:40 81 172/81 88 L 04/08/25 15:24 71 121/56 89 L 04/08/25 15:10 71 90/56 89 L Intake and Output 04/09/25 04/09/25 04/09/25 06:59 14:59 22:59 Intake Total 1620 Output Total 1175 Balance 445 Intake: Oral 1620 Output: Urine 1175 GENERAL DESCRIPTION: Elderly male lying in bed, no distress. No tachypnea or accessory muscle of respiration use. HEENT: Shows Pallor , no scleral icterus. Oral mucous membrane is dry. No pharyngeal erythema or thrush NECK: Trachea central, no thyromegaly. LUNGS: Unlabored breathing. Clear to auscultation anteriorly. No wheeze or crackle. HEART: S1, S2, regular rate and rhythm. No loud murmur ABDOMEN: Soft, no tenderness , guarding or rigidity, no organomegaly EXTREMITIES: No edema of feet. SKIN: No rash, no masses palpable. NEUROLOGICAL: The patient is awake, alert, oriented x3, mood and affect normal. Results CBC & Chem 7: 04/09/25 06:09 04/09/25 06:09 Labs: Abnormal Lab Results - Last 24 Hours (Table) 04/09/25 04/09/25 Range/Units 06:09 06:09 WBC 3.79 L (4.50-10.00) X 10*3/uL RBC 3.92 L (4.40-5.60) X 10*6/uL Hgb 12.0 L (13.0-17.0) g/dL Hct 38.4 L (39.6-50.0) % MCV 98.0 H (80.0-97.0) FL MCHC 31.3 L (32.0-37.0) g/dL Plt Count 136 L (140-440) X 10*3/uL Lymphocytes # 0.31 L (0.90-5.00) X 10*3/uL Monocytes # 0.12 L (0.20-1.00) X 10*3/uL Eosinophils # 0 L (0.04-0.35) X 10*3/uL Carbon Dioxide 20.2 L (21.6-31.8) mmol/L Est GFR (CKD-EPI) 48 L (>=60) Calcium 7.6 L (8.7-10.3) mg/dL Microbiology - Last 24 Hours (Table) 04/07/25 10:05 Blood Culture - Preliminary Blood 04/07/25 10:23 Blood Culture - Preliminary Blood Assessment and Plan (1) UTI (urinary tract infection) Current Visit: Yes Status: Acute Code(s): N39.0 - URINARY TRACT INFECTION, SITE NOT SPECIFIED SNOMED Code(s): 68681515 (2) Fever Current Visit: Yes Status: Acute Code(s): R50.9 - FEVER, UNSPECIFIED SNOMED Code(s): 054167108 (3) Penicillin allergy Current Visit: Yes Status: Acute Code(s): Z88.0 - ALLERGY STATUS TO PENICILLIN SNOMED Code(s): 89373245 Plan: 1patient presented hospital with a fever in this patient symptom preceded by urethrocystoscopy did have a positive UA likely source urinary tract infection and likely from enteric gram-negative pathogen in this patient who is status post repeat cystoscopy and removal of the artificial urinary sphincter insertion of suprapubic catheter 2-penicillin allergies that will limit the number of antibiotics safe to use 3-urine culture have been requested 4-will empirically treat with Rocephin while waiting for the culture to finalize We will follow on clinical condition and cultures to further adjust medication if needed Thank you for this consultation we will follow the patient along with you Dictation was produced using [employer] dictation software. please excuse any grammatical, word or spelling errors. Time with Patient: Greater than 30
--- NOTE | 2025-04-10 13:06 | P.PN ---
Subjective Progress Note Date: 04/10/25 74-year-old gentleman with past medical history significant for prostate cancer status post laparoscopic prostatectomy in 2011, who recently underwent cystourethroscopy on April 06 and was found o have a distal bulbous urethral stricture, which was gently incised using the visual urethrotome. Patient was discharged by urology on oral antibiotics. Patient stated ever since her discharge he started having nausea and was having fevers at home. There was no complaint of hematuria..There is no complaint of shortness of breath. Patient denies any palpitation. There is no complaint of orthopnea or PND. Denies any nausea, vomiting abdominal pain. Patient denies any complaint of dizziness. There is no complaint of headache. Because of the symptoms, patient came to the ER Initial lab work done in the ER showed WBC 9.9, hemoglobin 12.4, platelet count 209, sodium 142, potassium 4.7, BUN 30, creatinine 1.33 Chest x-ray done in the ER Increased perihilar opacities may present atypical pneumonia versus pulmonary congestion Patient admitted to urology REVIEW OF SYSTEMS: CONSTITUTIONAL: No fever, no malaise,. CARDIOVASCULAR: No chest pain, no palpitations, no syncope. PULMONARY: No shortness of breath, no cough, GASTROINTESTINAL: No diarrhea, no nausea, no vomiting, no abdominal pain. NEUROLOGICAL: No headaches, no weakness, PHYSICAL EXAMINATION: GENERAL: The patient is alert and oriented x3, not in any acute distress. Well developed, well nourished. HEENT: Pupils are round and equally reacting to light. EOMI. No scleral icterus. No conjunctival pallor. Normocephalic, atraumatic. No pharyngeal erythema. No thyromegaly. CARDIOVASCULAR: S1 and S2 present. No murmurs, rubs, or gallops. PULMONARY: Chest is clear to auscultation, no wheezing or crackles. ABDOMEN: Soft, nontender, nondistended, normoactive bowel sounds. No palpable organomegaly. MUSCULOSKELETAL: No joint swelling or deformity. EXTREMITIES: No cyanosis, clubbing, or pedal edema. NEUROLOGICAL: Gross neurological examination did not reveal any focal deficits. SKIN: No rashes. Assessment and plan GENERAL: The patient is alert and oriented x3, not in any acute distress. Well developed, well nourished. HEENT: Pupils are round and equally reacting to light. EOMI. No scleral icterus. No conjunctival pallor. Normocephalic, atraumatic. No pharyngeal erythema. No thyromegaly. CARDIOVASCULAR: S1 and S2 present. No murmurs, rubs, or gallops. PULMONARY: Chest is clear to auscultation, no wheezing or crackles. ABDOMEN: Soft, nontender, nondistended, normoactive bowel sounds. No palpable organomegaly. MUSCULOSKELETAL: No joint swelling or deformity. EXTREMITIES: No cyanosis, clubbing, or pedal edema. NEUROLOGICAL: Gross neurological examination did not reveal any focal deficits. SKIN: No rashes. Assessment and plan Postoperative fevers Acute hypoxic respiratory failure Bacterial pneumonia Urethral stricture Monitor vital signs Monitor CBC Monitor CMP Follow-up blood cultures Follow-up on urine culture Continue IV Rocephin, doxycycline ID following Labs and medication were reviewed.. Continue same treatment. Continue with symptomatic treatment. Resume home medication. Monitor labs and vitals. DVT and GI prophylaxis. Further recommendations as per clinical course of the patient Dictation was produced using [employer] dictation software. please excuse any g rammatical, word or spelling errors. Objective - Vital Signs Vital signs: Vital Signs Temp 97.9 F 04/10/25 07:08 Pulse 59 L 04/10/25 07:08 Resp 18 04/10/25 07:08 BP 128/73 04/10/25 07:08 Pulse Ox 94 L 04/10/25 07:08 FiO2 Intake & Output 04/09/25 04/10/25 04/10/25 18:59 06:59 18:59 Output Total 500 700 Balance -500 -700 Output: Urine 500 700 Other: Voiding Method Indwelling Catheter - Labs CBC & Chem 7: 04/09/25 06:09 04/09/25 06:09 Labs: Abnormal Lab Results - Last 24 Hours (Table) 04/09/25 Range/Units 19:00 Urine Protein 1+ H (Negative) Urine Blood Moderate H (Negative) Urine RBC 132 H (0-5) /hpf Urine WBC 7 H (0-5) /hpf Urine WBC Clumps Rare H (None) /hpf Urine Mucus Rare H (None) /hpf Urine Yeast (Budding) Rare H (None) /hpf Microbiology - Last 24 Hours (Table) 04/07/25 10:05 Blood Culture - Preliminary Blood 04/07/25 10:23 Blood Culture - Preliminary Blood
--- NOTE | 2025-04-10 13:28 | XR ---
EXAMINATION TYPE: XR chest 1V portable DATE OF EXAM: 04/10/2025 CLINICAL INDICATION: Male, 74 years old with history of Dyspnea, progress study. TECHNIQUE: Single AP portable upright view of the chest is obtained. COMPARISON: Chest x-ray from 3 days earlier FINDINGS: There is more prominent elevated left hemidiaphragm. There is persistent left mid lung opa city. Right lung remains clear. Cardiac silhouette size is upper limits of normal. Osseous structures are intact. IMPRESSION: More prominent elevated left hemidiaphragm with persistent left midlung opacity favoring atelectasis. Right lung remains clear. [facility], , 04/10/2025 1:26 PM
--- NOTE | 2025-04-10 16:55 | P.PN ---
Subjective Progress Note Date: 04/10/25 Principal diagnosis: Reason for follow-up is UTI Patient is a 74-year-old male with a past medical he significant for COPD hypertension hyperlipidemia prostate cancer diagnosed in 2023 the patient underwent laparoscopic prostatectomy and androgen deprivation therapy, with cystourethroscopy on 04/06/2025 and did have a urethral catheter placement subsequent wellbeing of fever with the patient has been admitted to hospital. On today's evaluation that is 04/10/2025, patient did have resolution of his fever and has been afebrile, patient is breathing comfortably and is currently on 3 L nasal oxygen patient denies having any chest pain and cough, patient denies nausea vomiting or diarrhea, he did have some lower abdominal discomfort. No new lab has been obtained today blood cultures pending Objective - Vital Signs Vital signs: Vital Signs Temp 97.5 F L 04/10/25 14:00 Pulse 59 L 04/10/25 14:00 Resp 18 04/10/25 14:00 BP 118/70 04/10/25 14:00 Pulse Ox 94 L 04/10/25 14:00 FiO2 Intake & Output 04/09/25 04/10/25 04/10/25 18:59 06:59 18:59 Output Total 500 700 Balance -500 -700 Output: Urine 500 700 Other: Voiding Method Indwelling Catheter - Exam GENERAL DESCRIPTION: An elderly male lying in bed in no distress RESPIRATORY SYSTEM: Unlabored breathing , decreased breath sounds at bases HEART: S1 S2 regular rate and rhythm , ABDOMEN: Soft , no tenderness EXTREMITIES: No edema feet - Labs CBC & Chem 7: 04/09/25 06:09 04/09/25 06:09 Labs: Abnormal Lab Results - Last 24 Hours (Table) 04/09/25 Range/Units 19:00 Urine Protein 1+ H (Negative) Urine Blood Moderate H (Negative) Urine RBC 132 H (0-5) /hpf Urine WBC 7 H (0-5) /hpf Urine WBC Clumps Rare H (None) /hpf Urine Mucus Rare H (None) /hpf Urine Yeast (Budding) Rare H (None) /hpf Microbiology - Last 24 Hours (Table) 04/07/25 10:05 Blood Culture - Preliminary Blood 04/07/25 10:23 Blood Culture - Preliminary Blood Assessment and Plan (1) UTI (urinary tract infection) Current Visit: Yes Status: Acute Code(s): N39.0 - URINARY TRACT INFECTION, SITE NOT SPECIFIED SNOMED Code(s): 29209925 (2) Fever Current Visit: Yes Status: Acute Code(s): R50.9 - FEVER, UNSPECIFIED SNOMED Code(s): 778091428 (3) Penicillin allergy Current Visit: Yes Status: Acute Code(s): Z88.0 - ALLERGY STATUS TO PENICILLIN SNOMED Code(s): 53404662 Plan: 1patient presented hospital with a fever in this patient symptom preceded by urethrocystoscopy did have a positive UA likely source urinary tract infection and likely from enteric gram-negative pathogen in this patient who is status pos t repeat cystoscopy and removal of the artificial urinary sphincter insertion of suprapubic catheter 2-penicillin allergies that will limit the number of antibiotics safe to use 3-urine culture have been requested still not showing up in the system has been requested again for now continue patient on Rocephin while waiting for the culture to finalize Family at bedside question answered Dictation was produced using [employer] dictation software. please excuse any grammatical, word or spelling errors.
[2025-04-10] MEDS: ZINC OXIDE PASTE (Z-GUARD) 1 APPLIC TOPICAL PRN (17:33)
--- NOTE | 2025-04-10 17:41 | P.PN ---
Subjective Progress Note Date: 04/10/25 No acute overnight event, patient was able to get out of bed and ambulate with assistance from PT. Denies any nausea or vomiting, having minimal drainage from both Eugene's. He is afebrile blood culture showed no growth Objective - Vital Signs Vital signs: Vital Signs Temp 97.5 F L 04/10/25 14:00 Pulse 59 L 04/10/25 14:00 Resp 18 04/10/25 14:00 BP 118/70 04/10/25 14:00 Pulse Ox 94 L 04/10/25 14:00 FiO2 Intake & Output 04/09/25 04/10/25 04/10/25 18:59 06:59 18:59 Output Total 500 700 Balance -500 -700 Output: Urine 500 700 Other: Voiding Method Indwelling Catheter - Constitutional General appearance: Present: no acute distress - Gastrointestinal Gastrointestinal Comment(s): Lower abdominal incision with naun clean dry intact, Eugene with minimal drainage appreciated General gastrointestinal: Present: soft. Absent: distended, tenderness - Genitourinary Genitourinary Comment(s): Perineal incision site clean some swelling no induration appreciated. - Labs CBC & Chem 7: 04/09/25 06:09 04/09/25 06:09 Labs: Abnormal Lab Results - Last 24 Hours (Table) 04/09/25 Range/Units 19:00 Urine Protein 1+ H (Negative) Urine Blood Moderate H (Negative) Urine RBC 132 H (0-5) /hpf Urine WBC 7 H (0-5) /hpf Urine WBC Clumps Rare H (None) /hpf Urine Mucus Rare H (None) /hpf Urine Yeast (Budding) Rare H (None) /hpf Microbiology - Last 24 Hours (Table) 04/07/25 10:23 Blood Culture - Preliminary Blood 04/07/25 10:05 Blood Culture - Preliminary Blood Assessment and Plan Assessment: 74-year-old male status post open suprapubic tube placement and AUS explant. Clinically he is looking better today compared to yesterday. Still on ceftriaxone. Will continue IV antibiotics for now Plan to remove drains prior to discharge, Possible discharge home tomorrow versus
[2025-04-10] MEDS: hydrALAZINE HCL 20 MG/ML 1 ML VIAL IVP STA (19:30)
[2025-04-11 08:02] VITALS: TEMP 97.4
--- NOTE | 2025-04-11 13:06 | P.PN ---
Subjective Progress Note Date: 04/11/25 74-year-old gentleman with past medical history significant for prostate cancer status post laparoscopic prostatectomy in 2011, who recently underwent cystourethroscopy on April 06 and was found o have a distal bulbous urethral stricture, which was gently incised using the visual urethrotome. Patient was discharged by urology on oral antibiotics. Patient stated ever since her discharge he started having nausea and was having fevers at home. There was no complaint of hematuria..There is no complaint of shortness of breath. Patient denies any palpitation. There is no complaint of orthopnea or PND. Denies any nausea, vomiting abdominal pain. Patient denies any complaint of dizziness. There is no complaint of headache. Because of the symptoms, patient came to the ER Initial lab work done in the ER showed WBC 9.9, hemoglobin 12.4, platelet count 209, sodium 142, potassium 4.7, BUN 30, creatinine 1.33 Chest x-ray done in the ER Increased perihilar opacities may present atypical pneumonia versus pulmonary congestion Patient admitted to urology 04/11. Patient seen and examined. Denies any abdominal pain. Breathing is improved. Not requiring any oxygen REVIEW OF SYSTEMS: CONSTITUTIONAL: No fever, no malaise,. CARDIOVASCULAR: No chest pain, no palpitations, no syncope. PULMONARY: No shortness of breath, no cough, GASTROINTESTINAL: No diarrhea, no nausea, no vomiting, no abdominal pain. NEUROLOGICAL: No headaches, no weakness, PHYSICAL EXAMINATION: GENERAL: The patient is alert and oriented x3, not in any acute distress. Well developed, well nourished. HEENT: Pupils are round and equally reacting to light. EOMI. No scleral icterus. No conjunctival pallor. Normocephalic, atraumatic. No pharyngeal erythema. No thyromegaly. CARDIOVASCULAR: S1 and S2 present. No murmurs, rubs, or gallops. PULMONARY: Chest is clear to auscultation, no wheezing or crackles. ABDOMEN: Soft, nontender, nondistended, normoactive bowel sounds. No palpable organomegaly. MUSCULOSKELETAL: No joint swelling or deformity. EXTREMITIES: No cyanosis, clubbing, or pedal edema. NEUROLOGICAL: Gross neurological examination did not reveal any focal deficits. SKIN: No rashes. Assessment and plan GENERAL: The patient is alert and oriented x3, not in any acute distress. Well developed, well nourished. HEENT: Pupils are round and equally reacting to light. EOMI. No scleral icterus. No conjunctival pallor. Normocephalic, atraumatic. No pharyngeal erythema. No thyromegaly. CARDIOVASCULAR: S1 and S2 present. No murmurs, rubs, or gallops. PULMONARY: Chest is clear to auscultation, no wheezing or crackles. ABDOMEN: Soft, nontender, nondistended, normoactive bowel sounds. No palpable organomegaly. MUSCULOSKELETAL: No joint swelling or deformity. EXTREMITIES: No cyanosis, clubbing, or pedal edema. NEUROLOGICAL: Gross neurological examination did not reveal any focal deficits. SKIN: No rashes. Assessment and plan Postoperative fevers Acute hypoxic respiratory failure Bacterial pneumonia Urethral stricture Monitor vital signs Monitor CBC Monitor CMP status post open suprapubic tube placement and AUS explant Follow-up blood cultures Follow-up on urine culture Continue IV Rocephin, doxycycline ID following Labs and medication were reviewed.. Continue same treatment. Continue with symptomatic treatment. Resume home medication. Monitor labs and vitals. DVT and GI prophylaxis. Further recommendations as per clinical course of the patient Dictation was produced using [employer] dictation software. please excuse any grammatical, word or spelling errors. Objective - Vital Signs Vital signs: Vital Signs Temp 97.4 F L 04/11/25 08:00 Pulse 62 04/11/25 08:00 Resp 16 04/11/25 08:00 BP 120/71 04/11/25 08:00 Pulse Ox 95 04/11/25 08:00 FiO2 Intake & Output 04/10/25 04/11/25 04/11/25 18:59 06:59 18:59 Output Total 450 800 500 Balance -450 -800 -500 Output: Urine 450 800 500 Other: Voiding Method Indwelling Catheter # Voids 1 1 # Bowel Movements 1 - Labs CBC & Chem 7: 04/09/25 06:09 04/09/25 06:09 Labs: Microbiology - Last 24 Hours (Table) 04/07/25 10:23 Blood Culture - Preliminary Blood 04/07/25 10:05 Blood Culture - Preliminary Blood
[2025-04-11 14:21] VITALS: BP 135/71; PULSE 64; RESP 17
--- NOTE | 2025-04-11 20:52 | P.DS ---
Providers Date of admission: 04/07/25 13:38 Attending physician: John Garcia Consults: 04/07/25 13:38 Consult Physician Urgent Consulting Provider: Brayden Merida Consult Reason/Comments: Medical management Do you want consulting provider notified?: Yes 04/09/25 12:42 Consult Physician Routine Consulting Provider: Doyle Lane Consult Reason/Comments: Complicated UTI Do you want consulting provider notified?: Yes Primary care physician: Quentin Wright DO Hospital Course: This is a 74-year-old male with history of AUS urethral erosion following an DVIU. Please see op note dated April 06 for surgery details. Patient was admitted to the hospital due to experiencing fever, he was taken to the OR on april 08 for explant of an AUS and suprapubic tube placement. Please see op note dated April 08 for surgery details. Patient was admitted to the hospital postoperatively for IV antibiotics. Patient had a drain along the perineal and the suprapubic tube incision. Both drains were removed on April 11. He was discharged home with a suprapubic catheter on April 11, he will follow-up in 1 week for staple removal. At time of discharge he was tolerating a diet, ambulating, and pain was controlled Patient Condition at Discharge: Fair Plan - Discharge Summary Discharge Rx Participant: Yes New Discharge Prescriptions: New cefuroxime axetiL [Ceftin] 500 mg PO BID 7 Days #14 tab Ketorolac [Toradol] 10 mg PO Q6HR PRN #15 tab PRN Reason: Pain No Action Ibuprofen [Motrin] 800 mg PO TID-W/MEALS PRN PRN Reason: Pain Or Fever > 100.5 Fluticasone/Umeclidin/Vilanter [Trelegy Ellipta 200-62.5-25] 1 puff INHALATION RT-DAILY Lansoprazole 30 mg PO DAILY allopurinoL [Zyloprim] 300 mg PO DAILY Fenofibrate [Lofibra] 160 mg PO DAILY Atorvastatin [Lipitor] 40 mg PO DAILY Albuterol Inhaler [Ventolin Hfa Inhaler] 2 puff INHALATION RT-QID PRN PRN Reason: Shortness Of Breath amLODIPine BESYLATE/BENAZEPRIL [amLODIPine BESYLATE/BENAZEPRIL 5-10 mg] 1 cap PO DAILY Sulfamethox-Tmp 800-160Mg [Bactrim DS 800-160 mg] 1 tab PO Q12HR #14 tab Discharge Medication List Albuterol Inhaler [Ventolin Hfa Inhaler] 2 puff INHALATION RT-QID PRN 03/31/25 [History] Atorvastatin [Lipitor] 40 mg PO DAILY 03/31/25 [History] Fenofibrate [Lofibra] 160 mg PO DAILY 03/31/25 [History] Fluticasone/Umeclidin/Vilanter [Trelegy Ellipta 200-62.5-25] 1 puff INHALATION RT-DAILY 03/31/25 [History] Ibuprofen [Motrin] 800 mg PO TID-W/MEALS PRN 03/31/25 [History] Lansoprazole 30 mg PO DAILY 03/31/25 [History] allopurinoL [Zyloprim] 300 mg PO DAILY 03/31/25 [History] amLODIPine BESYLATE/BENAZEPRIL [amLODIPine BESYLATE/BENAZEPRIL 5-10 mg] 1 cap PO DAILY 03/31/25 [History] Sulfamethox-Tmp 800-160Mg [Bactrim DS 800-160 mg] 1 tab PO Q12HR #14 tab 04/06/25 [Rx] Ketorolac [Toradol] 10 mg PO Q6HR PRN #15 tab 04/11/25 [Rx] cefuroxime axetiL [Ceftin] 500 mg PO BID 7 Days #14 tab 04/11/25 [Rx] Follow up Appointment(s)/Referral(s): John Garcia MD [STAFF PHYSICIAN] - 1 Week Pan Vela MD [STAFF PHYSICIAN] - 04/18/25 10:40 am Quentin Wright DO [Primary Care Provider] - 1-2 days [facility] Visiting Nurse, [NON-STAFF] - As Needed Discharge Disposition: HOME SELF-CARE
--- NOTE | 2025-04-13 13:02 | P.PN ---
Subjective Progress Note Date: 04/11/25 Principal diagnosis: Reason for follow-up is UTI Patient is a 74-year-old male with a past medical he significant for COPD hypertension hyperlipidemia prostate cancer diagnosed in 2023 the patient underwent laparoscopic prostatectomy and androgen deprivation therapy, with cystourethroscopy on 04/06/2025 and did have a urethral catheter placement subsequent wellbeing of fever with the patient has been admitted to hospital. On today's evaluation that is 04/11/2025,the patient denies any fever or any chills, patient is breathing comfortably on room air, the patient denies chest pain shortness of breath and no significant cough, patient denies abdominal pain, no nausea vomiting or diarrhea. No new labs has been obtained today culture have been negative so far Objective - Vital Signs Vital signs: Vital Signs Temp 97.4 F L 04/11/25 08:00 Pulse 62 04/11/25 08:00 Resp 16 04/11/25 08:00 BP 120/71 04/11/25 08:00 Pulse Ox 95 04/11/25 08:00 FiO2 Intake & Output 04/10/25 04/11/25 04/11/25 18:59 06:59 18:59 Output Total 450 800 500 Balance -450 -800 -500 Output: Urine 450 800 500 Other: Voiding Method Indwelling Catheter # Voids 1 1 # Bowel Movements 1 - Exam GENERAL DESCRIPTION: An elderly male lying in bed in no distress RESPIRATORY SYSTEM: Unlabored breathing , decreased breath sounds at bases HEART: S1 S2 regular rate and rhythm , ABDOMEN: Soft , no tenderness EXTREMITIES: No edema feet - Labs CBC & Chem 7: 04/09/25 06:09 04/09/25 06:09 Labs: Microbiology - Last 24 Hours (Table) 04/07/25 10:23 Blood Culture - Preliminary Blood 04/07/25 10:05 Blood Culture - Preliminary Blood Assessment and Plan (1) UTI (urinary tract infection) Status: Acute Code(s): N39.0 - URINARY TRACT INFECTION, SITE NOT SPECIFIED SNOMED Code(s): 98563290 (2) Fever Status: Acute Code(s): R50.9 - FEVER, UNSPECIFIED SNOMED Code(s): 027621930 (3) Penicillin allergy Status: Acute Code(s): Z88.0 - ALLERGY STATUS TO PENICILLIN SNOMED Code(s): 80549280 Plan: 1patient presented hospital with a fever in this patient symptom preceded by urethrocystoscopy did have a positive UA likely source urinary tract infection and likely from enteric gram-negative pathogen in this patient who is status post repeat cystoscopy and removal of the artificial urinary sphincter insertion of suprapubic catheter 2-penicillin allergies that will limit the number of antibiotics safe to use 3-patient has shown overall clinical improvement on Rocephin will finish therapy with Ceftin question concern answered prescription sent to the pharmacy Dictation was produced using [employer] dictation software. please excuse any grammatical, word or spelling errors.
== END 2025-04-11 15:41 | disposition home or self-care (01) | DRG 662 ==
LOC: EC 09:25 → 4SSUR 13:38
PROVIDERS: ADMIT Urology; ATTEND Urology
PROC: 0T9B00Z Drainage of Bladder with Drainage Device, Open Approach (ICD-10-PCS; principal; 2025-04-08 09:00)
PROC: 0TP Urinary System, Removal (ICD-10-PCS; 2025-04-08 09:00)
DX: T83.591A Infection and inflammatory reaction due to implanted urinary sphincter, initial encounter (principal); J15.9 Unspecified bacterial pneumonia; J96.01 Acute respiratory failure with hypoxia; J44.0 Chronic obstructive pulmonary disease with (acute) lower respiratory infection; I10 Essential (primary) hypertension; N13.6 Pyonephrosis; N35.812 Other bulbous urethral stricture, male; R50.82 Postprocedural fever; E78.5 Hyperlipidemia, unspecified; K59.00 Constipation, unspecified; R32 Unspecified urinary incontinence; R73.03 Prediabetes; R33.8 Other retention of urine; Z79.899 Other long term (current) drug therapy; Z88.0 Allergy status to penicillin; Z90.79 Acquired absence of other genital organ(s); Z85.46 Personal history of malignant neoplasm of prostate; Z90.49 Acquired absence of other specified parts of digestive tract; Z87.19 Personal history of other diseases of the digestive system; Z82.49 Family history of ischemic heart disease and other diseases of the circulatory system
CPT/HCPCS: 36415; 71045; 71046; 80048; 80053; 81001; 83605; 83880; 85025; 87040; 87086; 94640; 96361; 96365; 96375; 99285

== ENCOUNTER 2025-05-04 10:29 | Inpatient (IN) | payer MEDICARE ==
--- NOTE | 2025-05-04 11:32 | US ---
EXAMINATION TYPE: US venous doppler duplex LE RT DATE OF EXAM: 05/04/2025 11:17 AM COMPARISON: 03/31/2025 CLINICAL INDICATION: Male, 74 years old with history of pain/swelling; Swelling, not on blood thinner s. , Pain TECHNIQUE: The lower extremity deep venous system is examined utilizing real time linear array sonog concha with graded compression, color doppler sonography, and spectral doppler. SIDE PERFORMED: Right FINDINGS: VESSELS IMAGED: Common Femoral Vein Deep Femoral Vein Greater Saphenous Vein * Femoral Vein Popliteal Vein Small Saphenous Vein * Proximal Calf Veins (* superficial vessels) Right Leg: Positive for DVT from upper FV to calf veins, Color Doppler imaging shows patency of the vessels. Spectral waveforms are within normal limits. Positive for SVT in GSV. IMPRESSION: 1. Exam positive for acute subacute DVT right lower extremity extending from the upper femoral vein d own into the calf. 2. Additionally, exam is positive for SVT involving the GSV. [facility], , 05/04/2025 11:30 AM
[2025-05-04 12:02] LABS: Basophils # (A) 0.09 10*3/uL (0.00-0.10); Basophils % (A) 0.8 %; Eosinophils # (A) 0.06 10*3/uL (0.04-0.35); Eosinophils % (A) 0.5 %; HCT 39.1 % (39.6-50.0); HGB 12.7 g/dL (13.0-17.0); Lymphocytes # (A) 1.57 10*3/uL (0.90-5.00); Lymphocytes % (A) 14.0 %; MCH 30.5 pg (27.0-32.0); MCHC 32.5 g/dL (32.0-37.0); MCV 94.0 fL (80.0-97.0); Monocytes # (A) 1.00 10*3/uL (0.20-1.00); Monocytes % (A) 8.9 %; Neutrophils # (A) 8.42 10*3/uL (1.80-7.70); Neutrophils % (A) 74.9 %; Platelet Count 206 10*3/uL (140-440); RBC 4.16 10*6/uL (4.40-5.60); RDW 14.1 % (11.5-14.5); WBC 11.24 10*3/uL (4.50-10.00)
[2025-05-04 12:14] LABS: ALT 15 U/L (4-49); AST 21 U/L (17-59); African American GFR (CKD) 60 (>60 ml/min/1.73 sqM); Albumin 4.0 g/dL (3.5-5.0); Alkaline Phosphatase 46 U/L (38-126); Anion Gap 9 mmol/L; Blood Urea Nitrogen 24 mg/dL (9-20); Calcium 9.8 mg/dL (8.4-10.2); Carbon Dioxide 24 mmol/L (22-30); Chloride 104 mmol/L (98-107); Glucose 110 mg/dL (74-99); Magnesium 1.4 mg/dL (1.6-2.3); Non-African American GFR(CKD) 52 (>60 ml/min/1.73 sqM); Potassium 4.5 mmol/L (3.5-5.1); Sodium 137 mmol/L (137-145); Total Protein 7.1 g/dL (6.3-8.2)
[2025-05-04] MEDS: HEPARIN SODIUM 1,000 UN/ML (10ML VL) IV ONE (12:38)
[2025-05-04] MEDS: HEPARIN SOD,PORK IN 0.45% NACL 25,000 UNIT in 0.45% NACL 1 250ML.BAG IV SCH (12:42)
[2025-05-04 12:43] LABS: INR 1.1 (<1.2); Partial Thromboplastin Time 32.4 sec (22.0-30.0); Prothrombin Time 11.7 sec (10.0-12.5)
--- NOTE | 2025-05-04 12:43 | ED ---
General Adult HPI - General Chief complaint: Extremity Problem,Nontraumatic Stated complaint: R leg swelling, SOB Time Seen by Provider: 05/04/25 10:31 Source: patient, RN notes reviewed, old records reviewed Mode of arrival: ambulatory Limitations: no limitations - History of Present Illness Initial comments: 74-year-old male presenting from the outpatient setting for evaluation of right lower leg swelling and right-sided chest pain worse with deep inspiration. Patient has no prior history of DVT or PE. No cardiac history. Patient had noted the swelling in his leg over the past 1 week. He developed chest pain with deep inspiration which began in the past 24 hours. No fever or cough. - Related Data Home Medications Medication Instructions Recorded Confirmed Albuterol Inhaler [Ventolin Hfa 2 puff INHALATION RT-QID PRN 03/31/25 04/07/25 Inhaler] Atorvastatin [Lipitor] 40 mg PO DAILY 03/31/25 04/07/25 Fenofibrate [Lofibra] 160 mg PO DAILY 03/31/25 04/07/25 Fluticasone/Umeclidin/Vilanter 1 puff INHALATION RT-DAILY 03/31/25 04/07/25 [Trelegy Ellipta 200-62.5-25] Ibuprofen [Motrin] 800 mg PO TID-W/MEALS PRN 03/31/25 04/07/25 Lansoprazole 30 mg PO DAILY 03/31/25 04/07/25 allopurinoL [Zyloprim] 300 mg PO DAILY 03/31/25 04/07/25 amLODIPine BESYLATE/BENAZEPRIL 1 cap PO DAILY 03/31/25 04/07/25 [amLODIPine BESYLATE/BENAZEPRIL 5-10 mg] Previous Rx's Medication Instructions Recorded Sulfamethox-Tmp 800-160Mg [Bactrim 1 tab PO Q12HR #14 tab 04/06/25 DS 800-160 mg] Ketorolac [Toradol] 10 mg PO Q6HR PRN #15 tab 04/11/25 cefuroxime axetiL [Ceftin] 500 mg PO BID 7 Days #14 tab 04/11/25 Allergies Allergy/AdvReac Type Severity Reaction Status Date / Time Penicillins Allergy Rash/Hives Verified 05/04/25 10:42 Review of Systems ROS Statement: Those systems with pertinent positive or pertinent negative responses have been documented in the HPI. ROS Other: All systems not noted in ROS Statement are negative. Past Medical History Past Medical History: Cancer, COPD, Hyperlipidemia, Hypertension, Prostate Disorder Additional Past Medical History / Comment(s): pre diabetic, hx. prostate cancer 2009 History of Any Multi-Drug Resistant Organisms: None Reported Past Surgical History: Cholecystectomy, Hernia Repair, Prostate Surgery Additional Past Surgical History / Comment(s): robotic prostatectomy Past Anesthesia/Blood Transfusion Reactions: No Reported Reaction Past Psychological History: No Psychological Hx Reported Smoking Status: Never smoker Past Alcohol Use History: Occasional Past Drug Use History: None Reported - Past Family History Father Family Medical History: Congestive Heart Failure (CHF) Mother Family Medical History: Cancer Additional Family Medical History / Comment(s): uterine cancer Brother(s) Family Medical History: Cancer Additional Family Medical History / Comment(s): lung cancer (smoker x 70 yrs) General Exam Limitations: no limitations General appearance: alert, in no apparent distress Head exam: Present: atraumatic, normocephalic Eye exam: Present: normal appearance, PERRL Respiratory exam: Present: normal lung sounds bilaterally. Absent: respiratory distress, wheezes Cardiovascular Exam: Present: regular rate, normal rhythm GI/Abdominal exam: Present: soft. Absent: distended, tenderness Extremities exam: Present: other (Right leg swelling and calf tenderness) Neurological exam: Present: alert, oriented X3 Psychiatric exam: Present: normal affect, normal mood Skin exam: Present: warm, dry, intact Course Vital Signs 05/04/25 05/04/25 10:39 11:53 Temperature 97.7 F Pulse Rate 64 60 Respiratory 20 18 Rate Blood Pressure 106/69 O2 Sat by Pulse 96 Oximetry Medical Decision Making - Medical Decision Making Was pt. sent in by a medical professional or institution (, PA, UTILITY HELICOPTER REPAIRER, urgent care, hospital, or [facility]...) When possible be specific @ -No Did you speak to anyone other than the patient for history (EMS, parent, family, police, friend...)? What history was obtained from this source @ -No Did you review nursing and triage notes (agree or disagree)? Why? @ -I reviewed and agree with nursing and triage notes Were old charts reviewed (outside hosp., previous admission, EMS record, old EKG, old radiological studies, urgent care reports/EKG's, [facility] records)? Report findings @ -No old charts were reviewed Differential Dyspnea: Coronary syndrome, arrhythmia, tamponade, asthma, COPD, pulmonary embolism, pneumonia, pneumothorax, pulmonary effusion, anaphylaxis, diabetic ketoacidosis, flailed chest, pulmonary contusion, diaphragmatic rupture, anemia, neuromuscular, this is not meant to be an all-inclusive list. EKG interpreted by me (3pts min.). @ -Sinus rhythm rate of 61, IL interval 141, QRS duration 102, QTc [address] segment elevation. X-rays interpreted by me (1pt min.). @ -X-ray negative for acute cardiopulmonary findings, left-sided hiatal hernia CT interpreted by me (1pt min.). @ -None done U/S interpreted by me (1pt. min.). @Ultrasound of the right leg is positive for DVT What testing was considered but not performed or refused? (CT, X-rays, U/S, labs)? Why? @ -None What meds were considered but not given or refused? Why? @ -None Did you discuss the management of the patient with other professionals (professionals i.e. , PA, UTILITY HELICOPTER REPAIRER, lab, RT, psych nurse, social media content manager, predictive maintenance specialist, teacher, chief development officer, behavioral health case manager)? Give summary @ -No Was smoking cessation discussed for >3mins.? @ -No Was critical care preformed (if so, how long)? @ -Yes 35 minutes Were there social determinants of health that impacted care today? How? (Homelessness, low income, unemployed, alcoholism, drug addiction, transportation, low edu. Level, literacy, decrease access to med. care, nursing home, rehab)? @ -No Was there de-escalation of care discussed even if they declined (Discuss DNR or withdrawal of care, Hospice)? DNR status @ -No What co-morbidities impacted this encounter? (DM, HTN, Smoking, COPD, CAD, Cancer, CVA, ARF, Chemo, Hep., AIDS, mental health diagnosis, sleep apnea, morbi d obesity)? @ -None Was patient admitted / discharged? Hospital course, mention meds given and rout e, prescriptions, significant lab abnormalities, going to OR and other pertinent info. @ -[id number] male presenting to rule out DVT and concern for pulmonary embolism. Patient has had right leg swelling for 1 week and pleuritic chest pain which began yesterday on the right. Patient is hemodynamically stable he is breathing room air. His heart rate is in the 60s. DVT study is positive for DVT in the right leg. He has a significantly elevated D-dimer. He has a stable hemoglobin. No leukocytosis. His troponin is negative. His kidney function is somewhat improved but still showing a reduced GFR. Patient started on high-dose heparin for the DVT. He will receive a VQ scan to rule out pulmonary embolism. Given the pleuritic chest pain I have a high suspicion for PE. Case discussed with Dr. Merida who will admit. Vascular surgery on consult. Undiagnosed new problem with uncertain prognosis? @ -No Drug Therapy requiring intensive monitoring for toxicity (Heparin, Nitro, Insuli n, Cardizem)? @ -No Were any procedures done? @ -No Diagnosis/symptom? @ -DVT, rule out PE Acute, or Chronic, or Acute on Chronic? @Acute Uncomplicated (without systemic symptoms) or Complicated (systemic symptoms)? @ -Complicated Side effects of treatment? @ -No Exacerbation, Progression, or Severe Exacerbation? @ -No Poses a threat to life or bodily function? How? (Chest pain, USA, NC, pneumonia, PE, COPD, DKA, ARF, appy, cholecystitis, CVA, Diverticulitis, Homicidal, Suicidal, threat to staff... and all critical care pts) @Yes, pulmonary embolism - Lab Data Result diagrams: 05/04/25 11:52 05/04/25 11:52 Lab Results 05/04/25 05/04/25 05/04/25 Range/Units 11:52 11:52 11:52 WBC 11.24 H (4.50-10.00) 10*3/uL RBC 4.16 L (4.40-5.60) 10*6/uL Hgb 12.7 L (13.0-17.0) g/dL Hct 39.1 L (39.6-50.0) % MCV 94.0 (80.0-97.0) fL MCH 30.5 (27.0-32.0) pg MCHC 32.5 (32.0-37.0) g/dL Plt Count 206 (140-440) 10*3/uL MPV 10.1 (9.5-12.2) fL Immature Gran % (Auto) 0.9 % Neutrophils % 74.9 % Lymphocytes % 14.0 % Monocytes % 8.9 % Eosinophils % 0.5 % Basophils % 0.8 % Immature Gran # 0.10 H (0.00-0.04) 10*3/uL Neutrophils # 8.42 H (1.80-7.70) 10*3/uL Lymphocytes # 1.57 (0.90-5.00) 10*3/uL Monocytes # 1.00 (0.20-1.00) 10*3/uL Eosinophils # 0.06 (0.04-0.35) 10*3/uL Basophils # 0.09 (0.00-0.10) 10*3/uL PT 11.7 (10.0-12.5) sec INR 1.1 (<1.2) APTT 32.4 H (22.0-30.0) sec D-Dimer 16.02 H (<0.60) mg/L FEU Sodium 137 (137-145) mmol/L Potassium 4.5 (3.5-5.1) mmol/L Chloride 104 (98-107) mmol/L Carbon Dioxide 24 (22-30) mmol/L Anion Gap 9 mmol/L BUN 24 H (9-20) mg/dL Creatinine 1.33 H (0.66-1.25) mg/dL Est GFR (CKD-EPI)AfAm 60 (>60 ml/min/1.73 sqM) Est GFR (CKD-EPI)NonAf 52 (>60 ml/min/1.73 sqM) Glucose 110 H (74-99) mg/dL Calcium 9.8 (8.4-10.2) mg/dL Magnesium 1.4 L (1.6-2.3) mg/dL Total Bilirubin 0.7 (0.2-1.3) mg/dL AST 21 (17-59) U/L ALT 15 (4-49) U/L Alkaline Phosphatase 46 (38-126) U/L Troponin I (0.000-0.034) ng/mL Total Protein 7.1 (6.3-8.2) g/dL Albumin 4.0 (3.5-5.0) g/dL 05/04/ Range/Units 11:52 WBC (4.50-10.00) 10*3/uL RBC (4.40-5.60) 10*6/uL Hgb (13.0-17.0) g/dL Hct (39.6-50.0) % MCV (80.0-97.0) fL MCH (27.0-32.0) pg MCHC (32.0-37.0) g/dL Plt Count (140-440) 10*3/uL MPV (9.5-12.2) fL Immature Gran % (Auto) % Neutrophils % % Lymphocytes % % Monocytes % % Eosinophils % % Basophils % % Immature Gran # (0.00-0.04) 10*3/uL Neutrophils # (1.80-7.70) 10*3/uL Lymphocytes # (0.90-5.00) 10*3/uL Monocytes # (0.20-1.00) 10*3/uL Eosinophils # (0.04-0.35) 10*3/uL Basophils # (0.00-0.10) 10*3/uL PT (10.0-12.5) sec INR (<1.2) APTT (22.0-30.0) sec D-Dimer (<0.60) mg/L FEU Sodium (137-145) mmol/L Potassium (3.5-5.1) mmol/L Chloride (98-107) mmol/L Carbon Dioxide (22-30) mmol/L Anion Gap mmol/L BUN (9-20) mg/dL Creatinine (0.66-1.25) mg/dL Est GFR (CKD-EPI)AfAm (>60 ml/min/1.73 sqM) Est GFR (CKD-EPI)NonAf (>60 ml/min/1.73 sqM) Glucose (74-99) mg/dL Calcium (8.4-10.2) mg/dL Magnesium (1.6-2.3) mg/dL Total Bilirubin (0.2-1.3) mg/dL AST (17-59) U/L ALT (4-49) U/L Alkaline Phosphatase (38-126) U/L Troponin I <0.012 (0.000-0.034) ng/mL Total Protein (6.3-8.2) g/dL Albumin (3.5-5.0) g/dL Critical Care Time Critical Care Time: Yes Total Critical Care Time: 35 Disposition Clinical Impression: Deep vein thrombosis (DVT) of lower extremity Narrative: Positive D-dimer, pleuritic chest pain, rule out PE Disposition: ADMITTED IP TO THIS HOSP Condition: Stable Is patient prescribed a controlled substance at d/c from ED?: No Referrals: Quentin Wright DO [Primary Care Provider] - 1-2 days Time of Disposition: 13:01
[2025-05-04] MEDS: SODIUM CHLORIDE 0.9% 1,000 ML IV SCH (12:50)
[2025-05-04] MEDS: SODIUM CHLORIDE 0.9% 500 ML 500 ML IV ONE (12:53)
[2025-05-04] MEDS ORDERED: NALOXONE 0.4 MG/ML 1 ML VIAL IV PRN (12:59)
--- NOTE | 2025-05-04 13:04 | XR ---
EXAMINATION TYPE: XR chest 2V DATE OF EXAM: 05/04/2025 12:16 PM COMPARISON: 04/10/2025 CLINICAL INDICATION: Male, 74 years old with history of Chest Pain, , TECHNIQUE: AP and lateral views FINDINGS: The heart is upper limits of normal in size. Bowel lucencies are noted occupying the left lower lung. Previously, these are positioned higher into the mid lung level. There is some patchy density blunti ng the right costophrenic angle. DISH mid and lower thoracic spine. IMPRESSION: 1. Bowel lucencies occupying the lower left hemithorax. This could be due to diaphragmatic eventratio n, hemidiaphragmatic paralysis, or underlying diaphragmatic hernia. This was previously larger extend ing up into the mid chest. 2. Some opacification at the right costophrenic angle could represent a trace effusion or some patchy atelectasis/infiltrate. [facility], , 05/04/2025 1:02 PM
--- NOTE | 2025-05-04 15:20 | P.GSCN ---
History of Present Illness Consult date: 05/04/25 Reason for Consult: DVT, rule out PE Requesting physician: To Cabello History of present illness: This a pleasant 74-year-old male who recently underwent removal of artificial urinary sphincter and open insertion of suprapubic cystostomy tube on 04/08/2025 and was hospitalized for 4 days. Past medical history includes prostate cancer, COPD, hyperlipidemia, and hypertension. Patient presented to the emergency department today with complaints of right lower extremity swelling and shortness of breath and pain with inspiration on the right side of his chest. Patient states that he noticed right lower extremity swelling about a week ago however more recently during last couple days seem that it was a little more swollen however the no pain but he had no swelling in his left lower extremity. Last night he was sleeping and he woke up with some pain in the right side of his chest and states that there was increased pain with inspiration and some shortness of breath. He took a couple Motrin and that seemed to relieve it where he was able to fall back asleep. However today he has noticed intermitte ntly with deep breaths there is some discomfort in the right side of his chest. Initial lab work showed elevated D-dimer. He had a venous duplex of the lower extremity which was positive for a right femoral vein to calf vein deep vein thrombosis and a superficial thrombus in the greater saphenous vein. Patient denies any previous history of DVT, no history of pulmonary embolism. Troponins were negative. Vital signs are stable he is hemodynamically stable. Not requiring any oxygen and saturation is 95 to 96% on room air. Kidney function is elevated therefore patient is scheduled to undergo pulmonary perfusion study. Vascular surgery was consulted for DVT rule out pulmonary embolism. Patient is currently sitting up appears in no distress, he denies any shortness of breath at this time and no pain in his lower extremities. Review of Systems A 14 point review systems was completed all pertinent positives and negatives as stated in the HPI. Past Medical History Past Medical History: Cancer, COPD, Hyperlipidemia, Hypertension, Prostate Disorder Additional Past Medical History / Comment(s): pre diabetic, hx. prostate cancer 2009 History of Any Multi-Drug Resistant Organisms: None Reported Past Surgical History: Cholecystectomy, Hernia Repair, Prostate Surgery Additional Past Surgical History / Comment(s): robotic prostatectomy Past Anesthesia/Blood Transfusion Reactions: No Reported Reaction Past Psychological History: No Psychological Hx Reported Smoking Status: Never smoker Past Alcohol Use History: Occasional Past Drug Use History: None Reported - Past Family History Father Family Medical History: Congestive Heart Failure (CHF) Mother Family Medical History: Cancer Additional Family Medical History / Comment(s): uterine cancer Brother(s) Family Medical History: Cancer Additional Family Medical History / Comment(s): lung cancer (smoker x 70 yrs) Medications and Allergies Home Medications Medication Instructions Recorded Confirmed Type Albuterol Inhaler [Ventolin Hfa 2 puff INHALATION RT-QID PRN 03/31/25 05/04/25 History Inhaler] Atorvastatin [Lipitor] 40 mg PO DAILY 03/31/25 05/04/25 History Fenofibrate [Lofibra] 160 mg PO DAILY 03/31/25 05/04/25 History Fluticasone/Umeclidin/Vilanter 1 puff INHALATION RT-DAILY 03/31/25 05/04/25 Hist ory [Trelegy Ellipta 200-62.5-25] Ibuprofen [Motrin] 800 mg PO PC-TID PRN 03/31/25 05/04/25 History Lansoprazole 30 mg PO DAILY 03/31/25 05/04/25 History allopurinoL [Zyloprim] 300 mg PO DAILY 03/31/25 05/04/25 History amLODIPine BESYLATE/BENAZEPRIL 1 cap PO DAILY 03/31/25 05/04/25 History [amLODIPine BESYLATE/BENAZEPRIL 5-10 mg] Allergies Allergy/AdvReac Type Severity Reaction Status Date / Time Penicillins Allergy Rash/Hives Verified 05/04/25 13:18 Surgical - Exam Vital Signs Temp Pulse Resp BP Pulse Ox 97.7 F 64 20 106/69 96 05/04/25 10:39 05/04/25 10:39 05/04/25 10:39 05/04/25 10:39 05/04/25 10:39 General appearance: The patient is alert, oriented, appears in no acute distress. HET: Head is normocephalic and atraumatic. Pupils are equal and reactive. Neck: Supple. Heart: Regular. Lungs: Equal expansion, normal respiratory effort. Abdomen: Soft, nontender, nondistended. Extremities: Normal skin color and turgor. Right lower extremity edema. Palpable bilateral PT and DP pulses. Neurological: No focal deficits. Strength and sensation are grossly intact. Results - Labs 05/04/25 11:52 05/04/25 11:52 Abnormal Lab Results - Last 24 Hours (Table) 05/04/25 05/04/25 05/04/25 Range/Units 11:52 11:52 11:52 WBC 11.24 H (4.50-10.00) 10*3/uL RBC 4.16 L (4.40-5.60) 10*6/uL Hgb 12.7 L (13.0-17.0) g/dL Hct 39.1 L (39.6-50.0) % Immature Gran # 0.10 H (0.00-0.04) 10*3/uL Neutrophils # 8.42 H (1.80-7.70) 10*3/uL APTT 32.4 H (22.0-30.0) sec D-Dimer 16.02 H (<0.60) mg/L FEU BUN 24 H (9-20) mg/dL Creatinine 1.33 H (0.66-1.25) mg/dL Glucose 110 H (74-99) mg/dL Magnesium 1.4 L (1.6-2.3) mg/dL Diabetes panel 05/04/25 Range/Units 11:52 Sodium 137 (137-145) mmol/L Potassium 4.5 (3.5-5.1) mmol/L Chloride 104 (98-107) mmol/L Carbon Dioxide 24 (22-30) mmol/L BUN 24 H (9-20) mg/dL Creatinine 1.33 H (0.66-1.25) mg/dL Glucose 110 H (74-99) mg/dL Calcium 9.8 (8.4-10.2) mg/dL AST 21 (17-59) U/L ALT 15 (4-49) U/L Alkaline Phosphatase 46 (38-126) U/L Total Protein 7.1 (6.3-8.2) g/dL Albumin 4.0 (3.5-5.0) g/dL Calcium panel 05/04/25 Range/Units 11:52 Calcium 9.8 (8.4-10.2) mg/dL Albumin 4.0 (3.5-5.0) g/dL Pituitary panel 05/04/25 Range/Units 11:52 Sodium 137 (137-145) mmol/L Potassium 4.5 (3.5-5.1) mmol/L Chloride 104 (98-107) mmol/L Carbon Dioxide 24 (22-30) mmol/L BUN 24 H (9-20) mg/dL Creatinine 1.33 H (0.66-1.25) mg/dL Glucose 110 H (74-99) mg/dL Calcium 9.8 (8.4-10.2) mg/dL Adrenal panel 05/04/25 Range/Units 11:52 Sodium 137 (137-145) mmol/L Potassium 4.5 (3.5-5.1) mmol/L Chloride 104 (98-107) mmol/L Carbon Dioxide 24 (22-30) mmol/L BUN 24 H (9-20) mg/dL Creatinine 1.33 H (0.66-1.25) mg/dL Glucose 110 H (74-99) mg/dL Calcium 9.8 (8.4-10.2) mg/dL Total Bilirubin 0.7 (0.2-1.3) mg/dL AST 21 (17-59) U/L ALT 15 (4-49) U/L Alkaline Phosphatase 46 (38-126) U/L Total Protein 7.1 (6.3-8.2) g/dL Albumin 4.0 (3.5-5.0) g/dL - Imaging Comments: Venous duplex reports exam positive for acute subacute DVT right lower extremity extending from the upper femoral vein down into the calf. Additional exam is po sitive for SVT involving the GSV. Assessment and Plan Assessment: 1. Acute/subacute right lower extremity deep vein thrombosis 2. Chest pain with inspiration 3. Recent surgical procedure Plan: 1. Continue heparin drip for now, may transition to oral anticoagulation of your choice 2. Await pulmonary perfusion study 3. Currently there is no imaging reports available to determine if patient has pulmonary embolism. Patient is hemodynamically stable and if patient imaging does show pulmonary embolism likely not submassive requiring any intervention 4. Elevate right lower extremity 5. Apply MATHEW hose to right lower extremity Thank you for this consultation, we will continue to follow. The impression and plan of care has been dictated as directed. I performed a history and examination of this patient, discussed the same with the dictator. I agree with the dictator's note ,documented as a scribe. Any additional findings or plans will be noted.
--- NOTE | 2025-05-04 15:49 | NM ---
EXAMINATION TYPE: NM pul vent and perfuse DATE OF EXAM: 05/04/2025 CLINICAL INDICATION: Male, 74 years old with history of chest pain, pos DVT; difficulty breathing, s hortness of breath COMPARISON: 05/04/2025 chest radiograph TECHNIQUE: Utilizing inhalation of 39.3 mCi Tc 99m DTPA aerosol and intravenous injection of 5.4 mCi of Tc 99m MAA, ventilation and perfusion images are acquired post injection in multiple projections. FINDINGS: There are 2 large mismatched perfusion defects involving the right upper lung. Triple matched defect involving the left mid to lower lung. IMPRESSION: High probability for pulmonary embolus. [email or web address] [facility], , 05/04/2025 3:46 PM
[2025-05-04] MEDS ORDERED: ALBUTEROL NEBULIZED 2.5 MG/3 ML INHALATION PRN (22:01)
--- NOTE | 2025-05-04 22:38 | HP ---
HISTORY AND PHYSICAL CHIEF COMPLAINT: Right leg swelling, shortness of breath and chest pain. HISTORY OF PRESENT ILLNESS: This 74-year-old gentleman with a past medical history of multiple medical problems including removal of artificial urinary sphincter open insertion, suprapubic cystostomy tube failure in this month, is complaining of right leg pain. The patient is also complaining of some shortness of breath and pleuritic chest pain also. Evaluation showed evidence of DVT upper femoral to calf veins and V/Q scan showed high probability of pulmonary embolism with 2 large mismatched defects in the right upper lung. The patient admitted for evaluation. There is no history of fever, rigors, or chills at this time. PAST MEDICAL HISTORY: History of COPD, hypertension, hyperlipidemia. Rest of the history and the chart is also reviewed. HOME MEDICATIONS: Reviewed include amlodipine. Doses and rest of medications reviewed. ALLERGIES: Penicillin. FAMILY HISTORY: History of CHF in the family. SOCIAL HISTORY: No history of smoke. Occasional alcohol. REVIEW OF SYSTEMS: A 14-point review of systems negative except as mentioned earlier. PHYSICAL EXAMINATION: VITAL SIGNS: Pulse is 60, blood pressure 114/70, respirations 18. HEENT: Conjunctivae are normal. NECK: No JVD. CARDIOVASCULAR: S1, S2. RESPIRATION: Breath sounds diminished at the bases. ABDOMEN: Soft, suprapubic cystostomy tube present. LABORATORY DATA: WBC 11.25. Other labs are noted. ASSESSMENT: 1. Acute deep vein thrombosis of the right leg with acute pulmonary embolism. 2. History of recent removal of artificial urinary sphincter and open incision, suprapubic cystostomy tube. 3. Elevated WBC. 4. Elevated creatinine with chronic kidney disease, stage 3. 5. Hypomagnesemia. 6. Chronic obstructive pulmonary disease. 7. Hypertension. 8. Hyperlipidemia. 9. History of prediabetes. 10.History of prostate cancer. RECOMMENDATION: This 74-year-old gentleman presented with multiple complex medical issues. We will monitor the patient closely. Continue with current medical management and now recommend Vascular Surgery consultation. I would also recommend consultation with Hematology/Oncology and Urology as well. The prognosis guarded. 2D echo will be ordered. The patient is on IV heparin. Prognosis guarded because of multiple complex medical conditions. MMODL / IJN: [id number] /
[2025-05-05 03:44] LABS: Basophils # (A) 0.10 10*3/uL (0.00-0.10); Basophils % (A) 1.2 %; Eosinophils # (A) 0.16 10*3/uL (0.04-0.35); Eosinophils % (A) 2.0 %; HCT 33.7 % (39.6-50.0); HGB 10.8 g/dL (13.0-17.0); Lymphocytes # (A) 2.09 10*3/uL (0.90-5.00); Lymphocytes % (A) 25.6 %; MCH 29.9 pg (27.0-32.0); MCHC 32.0 g/dL (32.0-37.0); MCV 93.4 fL (80.0-97.0); Monocytes # (A) 0.70 10*3/uL (0.20-1.00); Monocytes % (A) 8.6 %; Neutrophils # (A) 5.04 10*3/uL (1.80-7.70); Neutrophils % (A) 61.5 %; Platelet Count 187 10*3/uL (140-440); RBC 3.61 10*6/uL (4.40-5.60); RDW 14.0 % (11.5-14.5); WBC 8.18 10*3/uL (4.50-10.00)
[2025-05-05 04:46] LABS: ALT 13 U/L (4-49); AST 26 U/L (17-59); African American GFR (CKD) 72 (>60 ml/min/1.73 sqM); Albumin 3.0 g/dL (3.5-5.0); Alkaline Phosphatase 52 U/L (38-126); Anion Gap 10 mmol/L; Blood Urea Nitrogen 21 mg/dL (9-20); Calcium 9.2 mg/dL (8.4-10.2); Carbon Dioxide 23 mmol/L (22-30); Chloride 105 mmol/L (98-107); Glucose 108 mg/dL (74-99); Non-African American GFR(CKD) 62 (>60 ml/min/1.73 sqM); Potassium 3.9 mmol/L (3.5-5.1); Sodium 138 mmol/L (137-145); Total Protein 5.7 g/dL (6.3-8.2)
[2025-05-05] MEDS: SYMBICORT 160-4.5 MCG INHALER INHALATION SCH (09:28)
[2025-05-05] MEDS: TIOTROPIUM 2.5 MCG INHALER INHALATION SCH (09:28)
[2025-05-05] MEDS: ATORVASTATIN 40 MG TAB PO SCH (10:52)
[2025-05-05] MEDS: PANTOPRAZOLE 40 MG TABLET PO SCH (10:53)
[2025-05-05] MEDS: FENOFIBRATE 160 MG TAB PO SCH (10:53)
[2025-05-05] MEDS: amLODIPine 5 MG TAB PO SCH (10:53)
--- NOTE | 2025-05-05 11:06 | P.PN ---
Subjective Progress Note Date: 05/05/25 Principal diagnosis: Deep venous thrombosis with pulmonary embolism. Underwent VQ scan. Objective - Vital Signs Vital signs: Vital Signs Temp 98.9 F 05/05/25 07:39 Pulse 58 L 05/05/25 10:00 Resp 18 05/05/25 10:00 BP 94/56 05/05/25 10:00 Pulse Ox 95 05/05/25 10:00 FiO2 Intake & Output 05/04/25 05/05/25 05/05/25 18:59 06:59 18:59 Intake Total 215.245 Output Total 1000 Balance -784.755 Weight 81.647 kg Intake: Intake, IV Titration 215.245 Amount Heparin Sod,Pork in 0.45% 215.245 NaCl 25,000 unit In 0.45 % NaCl 1 250ml.bag @ 18 UNITS/KG/HR 14.696 mls/hr IV .Q17H1M [facility] Rx#: [id number] Output: Urine 1000 - Exam Patient resting comfortably. There is no evidence of labored breathing or tachycardia. - Labs CBC & Chem 7: 05/05/25 02:57 05/05/25 02:57 Labs: Abnormal Lab Results - Last 24 Hours (Table) 05/04/25 05/04/25 05/04/25 Range/Units 11:52 11:52 11:52 WBC 11.24 H (4.50-10.00) 10*3/uL RBC 4.16 L (4.40-5.60) 10*6/uL Hgb 12.7 L (13.0-17.0) g/dL Hct 39.1 L (39.6-50.0) % Immature Gran # 0.10 H (0.00-0.04) 10*3/uL Neutrophils # 8.42 H (1.80-7.70) 10*3/uL APTT 32.4 H (22.0-30.0) sec D-Dimer 16.02 H (<0.60) mg/L FEU BUN 24 H (9-20) mg/dL Creatinine 1.33 H (0.66-1.25) mg/dL Glucose 110 H (74-99) mg/dL Magnesium 1.4 L (1.6-2.3) mg/dL Total Protein (6.3-8.2) g/dL Albumin (3.5-5.0) g/dL 05/04/25 05/05/25 05/05/25 Range/Units 18:14 02:57 02:57 WBC (4.50-10.00) 10*3/uL RBC 3.61 L (4.40-5.60) 10*6/uL Hgb 10.8 L (13.0-17.0) g/dL Hct 33.7 L (39.6-50.0) % Immature Gran # 0.09 H (0.00-0.04) 10*3/uL Neutrophils # (1.80-7.70) 10*3/uL APTT 76.2 H (22.0-30.0) sec D-Dimer (<0.60) mg/L FEU BUN 21 H (9-20) mg/dL Creatinine (0.66-1.25) mg/dL Glucose 108 H (74-99) mg/dL Magnesium (1.6-2.3) mg/dL Total Protein 5.7 L (6.3-8.2) g/dL Albumin 3.0 L (3.5-5.0) g/dL 05/05/25 Range/Units 02:57 WBC (4.50-10.00) 10*3/uL RBC (4.40-5.60) 10*6/uL Hgb (13.0-17.0) g/dL Hct (39.6-50.0) % Immature Gran # (0.00-0.04) 10*3/uL Neutrophils # (1.80-7.70) 10*3/uL APTT 49.6 H (22.0-30.0) sec D-Dimer (<0.60) mg/L FEU BUN (9-20) mg/dL Creatinine (0.66-1.25) mg/dL Glucose (74-99) mg/dL Magnesium (1.6-2.3) mg/dL Total Protein (6.3-8.2) g/dL Albumin (3.5-5.0) g/dL Assessment and Plan Assessment: 1: Deep venous thrombosis with secondary pulmonary embolism. 2: Pulmonary embolism does not at this time meet criteria for intervention outside of continued medical therapy. 3: Will sign off, will reevaluate at your request. Plan: Will sign off and reevaluate at your request. Time with Patient: Less than 30
--- NOTE | 2025-05-05 15:15 | PN ---
PROGRESS NOTE DATE OF SERVICE: 05/05/2025 SUBJECTIVE: This 74-year-old gentleman was admitted with acute DVT and as well as pulmonary embolism, is on IV heparin. The patient is being closely monitored at this time. Vascular Surgery has seen the patient, recommended no intervention at this time. A 2D echo is pending. PAST MEDICAL HISTORY: Reviewed. REVIEW OF SYSTEMS: A 14-point review of systems negative except as mentioned earlier. CURRENT MEDICATIONS: Reviewed. PHYSICAL EXAMINATION: VITAL SIGNS: Pulse is 66, blood pressure 107/70, and respirations 18. CHEST: Few scattered rhonchi. ABDOMEN: Soft. NERVOUS SYSTEM: No focal deficit. LABORATORY DATA: Reviewed. ASSESSMENT: 1. Acute deep venous thrombosis of the right leg with acute pulmonary embolism. 2. History of recent removal of artifical urinary sphincter and open incision with suprapubic cystostomy tube. 3. Elevated WBC. 4. Elevated creatinine with chronic kidney stage 3 possibly. 5. Hypomagnesemia. 6. Chronic obstructive pulmonary disease. 7. Hypertension. 8. Hyperlipidemia. 9. History of prediabetes. 10.History of prostate cancer. RECOMMENDATIONS: Recommend to continue current management and continue symptomatic treatment. Continue with bronchodilators. Closely follow with multiple consultants. Continue with IV heparin for now. Repeat labs in the morning. Guarded prognosis. Further recommendations to follow. MMODL / IJN: [id number] /
[2025-05-05 15:59] LABS: Bacteria,Urine Rare /hpf; Bilirubin,Urine Negative (Negative); Blood,Urine Trace (Negative); Color,Urine Colorless; Glucose,Urine (UA) Negative (Negative); Ketones,Urine Negative (Negative); Leukocyte Esterase,Urine Trace (Negative); Mucus,Urine Rare /hpf; Nitrite,Urine Positive (Negative); PH, Urine 6.5 (5.0-8.0); Protein,Urine Negative (Negative); RBC,Urine 5 /hpf (0-5); Specific Gravity,Urine 1.013 (1.001-1.035); Urobilinogen,Urine <2.0 mg/dL (<2.0); WBC,Urine 3 /hpf (0-5)
--- NOTE | 2025-05-05 17:15 | P.CONS ---
History of Present Illness - Reason for Consult Consult date: 05/05/25 DVT/PE Requesting physician: Nelia Odonnell - Chief Complaint Leg swelling - History of Present Illness Mr. Bynum is a very pleasant 74 yo male with history of multiple com orbidities including recent urologic surgery and 4 day hospitalization at the beginning of 04/2025 who is here for leg swelling and SOB/CP. work up with LE doppler showed acute right upper femoral vein DVT and V/Q scan with high probability of PE. He was started on heparin drip and admitted for further monitoring and treatment of acute VTE. Admits to being less active since his surgery. was normal and active prior to surgery. he does have a history of prostate cancer diagnosed 15 yrs ago and treated with RT followed by brief course of ET. no signs of recurrence. up to date on colon cancer screening, cologuard testing done recently was negative. no personal or FH of VTE (other than SVT in 2 daughters) or autoimmune disorders. mother had uterine cancer, otherwise no FH of cancers. Past Medical History Past Medical History: Cancer, COPD, Hyperlipidemia, Hypertension, Prostate Disorder Additional Past Medical History / Comment(s): pre diabetic, hx. prostate cancer 2009 History of Any Multi-Drug Resistant Organisms: None Reported Past Surgical History: Cholecystectomy, Hernia Repair, Prostate Surgery Additional Past Surgical History / Comment(s): robotic prostatectomy Past Anesthesia/Blood Transfusion Reactions: No Reported Reaction Past Psychological History: No Psychological Hx Reported Smoking Status: Never smoker Past Alcohol Use History: Occasional Past Drug Use History: None Reported - Past Family History Father Family Medical History: Congestive Heart Failure (CHF) Mother Family Medical History: Cancer Additional Family Medical History / Comment(s): uterine cancer Brother(s) Family Medical History: Cancer Additional Family Medical History / Comment(s): lung cancer (smoker x 70 yrs) Medications and Allergies Home Medications Medication Instructions Recorded Confirmed Type Albuterol Inhaler [Ventolin Hfa 2 puff INHALATION RT-QID PRN 03/31/25 05/04/25 History Inhaler] Atorvastatin [Lipitor] 40 mg PO DAILY 03/31/25 05/04/25 History Fenofibrate [Lofibra] 160 mg PO DAILY 03/31/25 05/04/25 History Fluticasone/Umeclidin/Vilanter 1 puff INHALATION RT-DAILY 03/31/25 05/04/25 History [Trelegy Ellipta 200-62.5-25] Ibuprofen [Motrin] 800 mg PO PC-TID PRN 03/31/25 05/04/25 History Lansoprazole 30 mg PO DAILY 03/31/25 05/04/25 History allopurinoL [Zyloprim] 300 mg PO DAILY 03/31/25 05/04/25 History amLODIPine BESYLATE/BENAZEPRIL 1 cap PO DAILY 03/31/25 05/04/25 History [amLODIPine BESYLATE/BENAZEPRIL 5-10 mg] Allergies Allergy/AdvReac Type Severity Reaction Status Date / Time Penicillins Allergy Rash/Hives Verified 05/04/25 13:18 Physical Exam Vitals: Vital Signs Temp Pulse Resp BP Pulse Ox 05/05/25 10:00 58 L 18 94/56 95 05/05/25 09:00 66 18 107/70 93 L 05/05/25 08:00 62 18 120/82 93 L 05/05/25 07:39 98.9 F 61 18 130/77 93 L 05/05/25 07:00 60 20 95/56 93 L 05/05/25 06:00 52 L 18 94/52 98 05/05/25 04:00 98.4 F 56 L 16 112/63 94 L 05/05/25 00:00 98.6 F 56 L 16 103/65 94 L 05/04/25 20:00 98.5 F 60 18 114/73 95 05/04/25 18:12 61 16 114/73 91 L Intake and Output 05/04/25 05/05/25 05/05/25 22:59 06:59 14:59 Intake Total 215.245 Output Total 1000 Balance -784.755 Intake: Intake, IV Titration 215.245 Amount Heparin Sod,Pork in 0.45% 215.245 NaCl 25,000 unit In 0.45 % NaCl 1 250ml.bag @ 18 UNITS/KG/HR 14.696 mls/hr IV .Q17H1M [facility] Rx#: [id number] Output: Urine 1000 In no acute distress. no respiratory distress on oxygen per NC (on RA at home). RLE swelling. no jaundice or icterus. alert and oriented x 3. Results CBC & Chem 7: 05/05/25 02:57 05/05/25 02:57 Labs: Abnormal Lab Results - Last 24 Hours (Table) 05/04/25 05/05/25 05/05/25 Range/Units 18:14 02:57 02:57 RBC 3.61 L (4.40-5.60) 10*6/uL Hgb 10.8 L (13.0-17.0) g/dL Hct 33.7 L (39.6-50.0) % Immature Gran # 0.09 H (0.00-0.04) 10*3/uL APTT 76.2 H (22.0-30.0) sec BUN 21 H (9-20) mg/dL Glucose 108 H (74-99) mg/dL Total Protein 5.7 L (6.3-8.2) g/dL Albumin 3.0 L (3.5-5.0) g/dL 05/05/25 Range/Units 02:57 RBC (4.40-5.60) 10*6/uL Hgb (13.0-17.0) g/dL Hct (39.6-50.0) % Immature Gran # (0.00-0.04) 10*3/uL APTT 49.6 H (22.0-30.0) sec BUN (9-20) mg/dL Glucose (74-99) mg/dL Total Protein (6.3-8.2) g/dL Albumin (3.5-5.0) g/dL Comments: V/Q scan with high probability of PE Venous US: report reviewed Assessment and Plan Assessment: 1. provoked proximal RLE DVT and PE Plan: Mr. Bynum is a very pleasant 74 yo male with recent hospitalization after urologic surgery who is here for right leg swelling and SOB/CP. work up with acute proximal RLE DVT and high probability of PE on V/Q scan. - provoked RLE DVT and PE due to hospitalizaiton and surgery - agree with heparin drip => doac for minimum of 6 months of AC - No hypercoagulable work up indicated for now - he should follow up in clinic in 1-2 months to finalize duration of AC and consider checking FVL/prothrombin mutation due to FH of 2 daughters with SVT Discussed with pt and his family (, 2 daughters and granddaughter) and they were agreeable. all questions answered. discussed with nursing staff.
--- NOTE | 2025-05-05 18:29 | P.GSCN ---
History of Present Illness Consult date: 05/05/25 History of present illness: 74 yo male , sp ralp approximately 2011. He had philip that required a gu sphincter that eroded recently that required removal and placement of a sp tube by Dr Garcia. He is now in the hospital with a dvt. We were asked to see the patient. The sp tube is draining without problems Review of Systems All systems: negative - Constitutional Denies fever, Denies weight loss - EENT Eyes: denies blurred vision Ears, nose, mouth and throat: Denies dysphagia - Cardiovascular Denies chest pain, Denies shortness of breath - Respiratory Denies cough, Denies 7 - Gastrointestinal Reports as per HPI - Genitourinary Denies dysuria, Denies hematuria - Integumentary Denies rash, Denies unusual bruising - Neurological Denies headaches, Denies syncope - Hematologic/Lymphatic Denies easy bleeding, Denies easy bruising Past Medical History Past Medical History: Cancer, COPD, Hyperlipidemia, Hypertension, Prostate Disorder Additional Past Medical History / Comment(s): pre diabetic, hx. prostate cancer 2009 History of Any Multi-Drug Resistant Organisms: None Reported Past Surgical History: Cholecystectomy, Hernia Repair, Prostate Surgery Additional Past Surgical History / Comment(s): robotic prostatectomy Past Anesthesia/Blood Transfusion Reactions: No Reported Reaction Past Psychological History: No Psychological Hx Reported Smoking Status: Never smoker Past Alcohol Use History: Occasional Past Drug Use History: None Reported - Past Family History Father Family Medical History: Congestive Heart Failure (CHF) Mother Family Medical History: Cancer Additional Family Medical History / Comment(s): uterine cancer Brother(s) Family Medical History: Cancer Additional Family Medical History / Comment(s): lung cancer (smoker x 70 yrs) Medications and Allergies Home Medications Medication Instructions Recorded Confirmed Type Albuterol Inhaler [Ventolin Hfa 2 puff INHALATION RT-QID PRN 03/31/25 05/04/25 History Inhaler] Atorvastatin [Lipitor] 40 mg PO DAILY 03/31/25 05/04/25 History Fenofibrate [Lofibra] 160 mg PO DAILY 03/31/25 05/04/25 History Fluticasone/Umeclidin/Vilanter 1 puff INHALATION RT-DAILY 03/31/25 05/04/25 History [Trelegy Ellipta 200-62.5-25] Ibuprofen [Motrin] 800 mg PO PC-TID PRN 03/31/25 05/04/25 History Lansoprazole 30 mg PO DAILY 03/31/25 05/04/25 History allopurinoL [Zyloprim] 300 mg PO DAILY 03/31/25 05/04/25 History amLODIPine BESYLATE/BENAZEPRIL 1 cap PO DAILY 03/31/25 05/04/25 History [amLODIPine BESYLATE/BENAZEPRIL 5-10 mg] Allergies Allergy/AdvReac Type Severity Reaction Status Date / Time Penicillins Allergy Rash/Hives Verified 05/04/25 13:18 Surgical - Exam Vital Signs Temp Pulse Resp BP Pulse Ox 97.7 F 64 20 106/69 96 05/04/25 10:39 05/04/25 10:39 05/04/25 10:39 05/04/25 10:39 05/04/25 10:39 - Genitourinary sp tube draining withouut problems. No significant erythema around the tube insertion site. Results - Labs 05/05/25 02:57 05/05/25 02:57 Abnormal Lab Results - Last 24 Hours (Table) 05/04/25 05/04/25 05/04/25 Range/Units 11:52 11:52 11:52 WBC 11.24 H (4.50-10.00) 10*3/uL RBC 4.16 L (4.40-5.60) 10*6/uL Hgb 12.7 L (13.0-17.0) g/dL Hct 39.1 L (39.6-50.0) % Immature Gran # 0.10 H (0.00-0.04) 10*3/uL Neutrophils # 8.42 H (1.80-7.70) 10*3/uL APTT 32.4 H (22.0-30.0) sec D-Dimer 16.02 H (<0.60) mg/L FEU BUN 24 H (9-20) mg/dL Creatinine 1.33 H (0.66-1.25) mg/dL Glucose 110 H (74-99) mg/dL Magnesium 1.4 L (1.6-2.3) mg/dL Total Protein (6.3-8.2) g/dL Albumin (3.5-5.0) g/dL 05/04/25 05/05/25 05/05/25 Range/Units 18:14 02:57 02:57 WBC (4.50-10.00) 10*3/uL RBC 3.61 L (4.40-5.60) 10*6/uL Hgb 10.8 L (13.0-17.0) g/dL Hct 33.7 L (39.6-50.0) % Immature Gran # 0.09 H (0.00-0.04) 10*3/uL Neutrophils # (1.80-7.70) 10*3/uL APTT 76.2 H (22.0-30.0) sec D-Dimer (<0.60) mg/L FEU BUN 21 H (9-20) mg/dL Creatinine (0.66-1.25) mg/dL Glucose 108 H (74-99) mg/dL Magnesium (1.6-2.3) mg/dL Total Protein 5.7 L (6.3-8.2) g/dL Albumin 3.0 L (3.5-5.0) g/dL 05/05/25 Range/Units 02:57 WBC (4.50-10.00) 10*3/uL RBC (4.40-5.60) 10*6/uL Hgb (13.0-17.0) g/dL Hct (39.6-50.0) % Immature Gran # (0.00-0.04) 10*3/uL Neutrophils # (1.80-7.70) 10*3/uL APTT 49.6 H (22.0-30.0) sec D-Dimer (<0.60) mg/L FEU BUN (9-20) mg/dL Creatinine (0.66-1.25) mg/dL Glucose (74-99) mg/dL Magnesium (1.6-2.3) mg/dL Total Protein (6.3-8.2) g/dL Albumin (3.5-5.0) g/dL Diabetes panel 05/04/25 05/05/25 Range/Units 11:52 02:57 Sodium 137 138 (137-145) mmol/L Potassium 4.5 3.9 (3.5-5.1) mmol/L Chloride 104 105 (98-107) mmol/L Carbon Dioxide 24 23 (22-30) mmol/L BUN 24 H 21 H (9-20) mg/dL Creatinine 1.33 H 1.15 (0.66-1.25) mg/dL Glucose 110 H 108 H (74-99) mg/dL Calcium 9.8 9.2 (8.4-10.2) mg/dL AST 21 26 (17-59) U/L ALT 15 13 (4-49) U/L Alkaline Phosphatase 46 52 (38-126) U/L Total Protein 7.1 5.7 L (6.3-8.2) g/dL Albumin 4.0 3.0 L (3.5-5.0) g/dL Calcium panel 05/04/25 05/05/25 Range/Units 11:52 02:57 Calcium 9.8 9.2 (8.4-10.2) mg/dL Albumin 4.0 3.0 L (3.5-5.0) g/dL Pituitary panel 05/04/25 05/05/25 Range/Units 11:52 02:57 Sodium 137 138 (137-145) mmol/L Potassium 4.5 3.9 (3.5-5.1) mmol/L Chloride 104 105 (98-107) mmol/L Carbon Dioxide 24 23 (22-30) mmol/L BUN 24 H 21 H (9-20) mg/dL Creatinine 1.33 H 1.15 (0.66-1.25) mg/dL Glucose 110 H 108 H (74-99) mg/dL Calcium 9.8 9.2 (8.4-10.2) mg/dL Adrenal panel 05/04/25 05/05/25 Range/Units 11:52 02:57 Sodium 137 138 (137-145) mmol/L Potassium 4.5 3.9 (3.5-5.1) mmol/L Chloride 104 105 (98-107) mmol/L Carbon Dioxide 24 23 (22-30) mmol/L BUN 24 H 21 H (9-20) mg/dL Creatinine 1.33 H 1.15 (0.66-1.25) mg/dL Glucose 110 H 108 H (74-99) mg/dL Calcium 9.8 9.2 (8.4-10.2) mg/dL Total Bilirubin 0.7 0.4 (0.2-1.3) mg/dL AST 21 26 (17-59) U/L ALT 15 13 (4-49) U/L Alkaline Phosphatase 46 52 (38-126) U/L Total Protein 7.1 5.7 L (6.3-8.2) g/dL Albumin 4.0 3.0 L (3.5-5.0) g/dL Assessment and Plan Assessment: Impression: dvt being treated. Histroy of philip sp ralp. sp gu sphincter removal sp placement of sp tube functioning Recommendations: there is nothing urologic that needs to be done this admission He should fu with Dr Garcia as an op
[2025-05-06] MEDS: ACETAMINOPHEN TAB 325 MG TAB PO PRN (04:55)
[2025-05-06] MEDS ORDERED: HYDROcodone/APAP 5-325MG 1 EACH TAB PO PRN (05:40)
[2025-05-06 07:30] LABS: Basophils # (A) 0.07 10*3/uL (0.00-0.10); Basophils % (A) 0.7 %; Eosinophils # (A) 0.11 10*3/uL (0.04-0.35); Eosinophils % (A) 1.2 %; HCT 34.7 % (39.6-50.0); HGB 11.1 g/dL (13.0-17.0); Lymphocytes # (A) 1.57 10*3/uL (0.90-5.00); Lymphocytes % (A) 16.7 %; MCH 30.2 pg (27.0-32.0); MCHC 32.0 g/dL (32.0-37.0); MCV 94.6 fL (80.0-97.0); Monocytes # (A) 0.74 10*3/uL (0.20-1.00); Monocytes % (A) 7.9 %; Neutrophils # (A) 6.84 10*3/uL (1.80-7.70); Neutrophils % (A) 72.6 %; Platelet Count 211 10*3/uL (140-440); RBC 3.67 10*6/uL (4.40-5.60); RDW 13.7 % (11.5-14.5); WBC 9.41 10*3/uL (4.50-10.00)
[2025-05-06 07:52] LABS: African American GFR (CKD) 74 (>60 ml/min/1.73 sqM); Anion Gap 7 mmol/L; Blood Urea Nitrogen 20 mg/dL (9-20); Calcium 9.0 mg/dL (8.4-10.2); Carbon Dioxide 21 mmol/L (22-30); Chloride 107 mmol/L (98-107); Glucose 97 mg/dL (74-99); Non-African American GFR(CKD) 64 (>60 ml/min/1.73 sqM); Potassium 4.1 mmol/L (3.5-5.1); Sodium 135 mmol/L (137-145)
[2025-05-06] MEDS: HEPARIN SODIUM 1,000 UN/ML (10ML VL) IV PRN (08:39)
--- NOTE | 2025-05-06 11:57 | P.PN ---
Progress Note - Text Progress Note Date: 05/06/25 The patient is in the hospital with a DVT. He has a suprapubic tube placed by Dr. Garcia. The tube is draining nicely. There is no evidence of infection in the tube. He will continue with his anticoagulation.
--- NOTE | 2025-05-06 23:05 | PN ---
PROGRESS NOTE DATE OF SERVICE: 05/06/2025 SUBJECTIVE: This is a 74-year-old gentleman who was admitted with acute DVT of the right leg and acute pulmonary embolism. He is closely monitored. The patient is on IV heparin. No chest pain. No palpitations. He is not a candidate for invasive procedure. PHYSICAL EXAMINATION: VITAL SIGNS: The pulse is 61, blood pressure 98/59, respirations 16. CHEST: Few scattered rhonchi. ABDOMEN: Soft. NERVOUS SYSTEM: No focal deficit. LABORATORY DATA: Reviewed. ASSESSMENT: 1. Acute deep venous thrombosis of the right leg with acute pulmonary embolism. 2. History of recent removal of the artifical urinary sphincter with open incision, suprapubic cystostomy tube. 3. Elevated WBC. 4. Elevated creatinine with chronic kidney disease, stage 3 possibly. 5. Hypomagnesemia. 6. History of chronic obstructive pulmonary disease. 7. Multiple complex medical issues. RECOMMENDATIONS AND DISCUSSION: Recommend to continue current management and repeat labs. Continue with the IV heparin. Transition to oral anticoagulations in the next 24 hours and possible discharge. Prognosis is guarded. Further recommendations to follow. 2D echo is pending. MMODL / IJN: [id number] /
[2025-05-07 06:45] LABS: Basophils # (A) 0.09 10*3/uL (0.00-0.10); Basophils % (A) 1.0 %; Eosinophils # (A) 0.23 10*3/uL (0.04-0.35); Eosinophils % (A) 2.5 %; HCT 35.6 % (39.6-50.0); HGB 11.6 g/dL (13.0-17.0); Lymphocytes # (A) 2.19 10*3/uL (0.90-5.00); Lymphocytes % (A) 24.0 %; MCH 30.4 pg (27.0-32.0); MCHC 32.6 g/dL (32.0-37.0); MCV 93.4 fL (80.0-97.0); Monocytes # (A) 0.68 10*3/uL (0.20-1.00); Monocytes % (A) 7.5 %; Neutrophils # (A) 5.82 10*3/uL (1.80-7.70); Neutrophils % (A) 63.9 %; Platelet Count 208 10*3/uL (140-440); RBC 3.81 10*6/uL (4.40-5.60); RDW 14.0 % (11.5-14.5); WBC 9.11 10*3/uL (4.50-10.00)
[2025-05-07 06:56] LABS: African American GFR (CKD) 74 (>60 ml/min/1.73 sqM); Anion Gap 6 mmol/L; Blood Urea Nitrogen 23 mg/dL (9-20); Calcium 9.3 mg/dL (8.4-10.2); Carbon Dioxide 23 mmol/L (22-30); Chloride 110 mmol/L (98-107); Glucose 98 mg/dL (74-99); Non-African American GFR(CKD) 64 (>60 ml/min/1.73 sqM); Potassium 4.1 mmol/L (3.5-5.1); Sodium 139 mmol/L (137-145)
--- NOTE | 2025-05-07 13:14 | P.PN ---
Subjective Progress Note Date: 05/07/25 Principal diagnosis: DVT Objective - Vital Signs Vital signs: Vital Signs Temp 97.9 F 05/07/25 11:46 Pulse 67 05/07/25 11:46 Resp 16 05/07/25 11:46 BP 104/68 05/07/25 11:46 Pulse Ox 91 L 05/07/25 11:55 FiO2 Intake & Output 05/06/25 05/07/25 05/07/25 18:59 06:59 18:59 Intake Total 573.638 240 Output Total 1200 650 900 Balance -626.362 -650 -660 Weight 77 kg Intake: Intake, IV Titration 215.638 Amount Heparin Sod,Pork in 0.45% 215.638 NaCl 25,000 unit In 0.45 % NaCl 1 250ml.bag @ 18 UNITS/KG/HR 14.696 mls/hr IV .Q17H1M [facility] Rx#: [id number] Oral 358 240 Output: Urine 1200 650 900 Other: Voiding Method Indwelling Catheter Indwelling Catheter Indwelling Catheter # Voids 1 # Bowel Movements 1 1 - Labs CBC & Chem 7: 05/07/25 05:28 05/07/25 05:28 Labs: Abnormal Lab Results - Last 24 Hours (Table) 05/06/25 05/07/25 05/07/25 Range/Units 14:42 05:28 05:28 RBC 3.81 L (4.40-5.60) 10*6/uL Hgb 11.6 L (13.0-17.0) g/dL Hct 35.6 L (39.6-50.0) % Immature Gran # 0.10 H (0.00-0.04) 10*3/uL APTT 58.4 H (22.0-30.0) sec Chloride 110 H (98-107) mmol/L BUN 23 H (9-20) mg/dL 05/07/25 Range/Units 05:28 RBC (4.40-5.60) 10*6/uL Hgb (13.0-17.0) g/dL Hct (39.6-50.0) % Immature Gran # (0.00-0.04) 10*3/uL APTT 49.5 H (22.0-30.0) sec Chloride (98-107) mmol/L BUN (9-20) mg/dL Assessment and Plan (1) Deep vein thrombosis (DVT) of lower extremity Current Visit: Yes Status: Acute Priority: High Code(s): I82.409 - ACUTE EMBOLISM AND THOMBOS UNSP DEEP VN UNSP LOWER EXTREMITY SNOMED Code(s): 274112466 (2) Pulmonary emboli Current Visit: Yes Status: Suspected Priority: High Code(s): I26.99 - OTHER PULMONARY EMBOLISM WITHOUT ACUTE COR PULMONALE SNOMED Code(s): 29874329 Plan: Provoked RLE DVT and PE -Acute proximal RLE DVT and high probability of PE on V/Q scan. Recent hospitalization and surgery -Pt cont on heparin drip today, no significant resp symptoms or leg pain. -Transition to DOAC. Rx sent to pharmacy, CM consulted to verify copay. -Minimum of 6 months of anticoagulation -Plan for follow up in clinic in 2-3 months to finalize duration of a nticoagulation. Possible genetic tests for family Hx of superficial thrombosis. Pt verbalized understanding of the plan from a Hematology standpoint. Will contact pt with appt date and time.
[2025-05-08 07:23] LABS: African American GFR (CKD) 57 (>60 ml/min/1.73 sqM); Anion Gap 7 mmol/L; Blood Urea Nitrogen 27 mg/dL (9-20); Calcium 9.6 mg/dL (8.4-10.2); Carbon Dioxide 25 mmol/L (22-30); Chloride 109 mmol/L (98-107); Glucose 96 mg/dL (74-99); Magnesium 1.3 mg/dL (1.6-2.3); Non-African American GFR(CKD) 49 (>60 ml/min/1.73 sqM); Potassium 4.6 mmol/L (3.5-5.1); Sodium 141 mmol/L (137-145)
[2025-05-08 07:26] LABS: Basophils # (A) 0.06 10*3/uL (0.00-0.10); Basophils % (A) 0.7 %; Eosinophils # (A) 0.22 10*3/uL (0.04-0.35); Eosinophils % (A) 2.4 %; HCT 39.5 % (39.6-50.0); HGB 12.5 g/dL (13.0-17.0); Lymphocytes # (A) 2.41 10*3/uL (0.90-5.00); Lymphocytes % (A) 26.6 %; MCH 29.7 pg (27.0-32.0); MCHC 31.6 g/dL (32.0-37.0); MCV 93.8 fL (80.0-97.0); Monocytes # (A) 0.64 10*3/uL (0.20-1.00); Monocytes % (A) 7.1 %; Neutrophils # (A) 5.64 10*3/uL (1.80-7.70); Neutrophils % (A) 62.2 %; Platelet Count 195 10*3/uL (140-440); RBC 4.21 10*6/uL (4.40-5.60); RDW 14.2 % (11.5-14.5); WBC 9.06 10*3/uL (4.50-10.00)
--- NOTE | 2025-05-08 09:05 | P.PN ---
Subjective Progress Note Date: 05/07/25 This is a pleasant 74-year-old male who was recently admitted with acute DVT of the right leg and also acute pulmonary embolism. Hematology/oncology following as patient is maintained on IV heparin and will transition to Eliquis. Sending to pharmacy to verify coverage at this time. Patient also awaiting a 2D echo which has been ordered and remains pending at this time. Patient to also be evaluated by PT/OT therapy as patient is reporting weakness. Plan will likely be to go home with home care. Patient is afebrile with no reports of chest pain or shortness of breath. Patient is anxious to go home and awaiting clearance. Review of systems: Constitutional: No reports of fatigue, fever, or chills Cardiovascular: No reports of chest pain or palpitations Respiratory: No reports of shortness of breath or cough GI: No reports of nausea, no reports of vomiting, no diarrhea : No reports of dysuria or retention Neurovascular: reports of generalized weakness All medications have been reviewed Active Medications PHYSICAL EXAMINATION: GENERAL: The patient is alert and oriented x4, Well developed, well nourished. Elderly appearing HEENT: Pupils are round and equally reacting to light. EOMI. no scleral icterus. No conjunctival pallor. Normocephalic, atraumatic. No pharyngeal erythema. No thyromegaly. CARDIOVASCULAR: S1 and S2 muffled PULMONARY: diminished breath sounds bilaterally with no wheezing or rhonchi noted. ABDOMEN: soft. Nontender on exam. obese. non-distended, normoactive bowel sounds. No palpable organomegaly. MUSCULOSKELETAL: No joint swelling or deformity. EXTREMITIES: No cyanosis, clubbing, or pedal edema. NEUROLOGICAL: Gross neurological examination did not reveal any focal deficits. Diffuse weakness SKIN: No rashes. Assessment: Acute DVT of the right leg with acute pulmonary embolism, maintained on IV heparin and will transition to oral Eliquis History of recent removal of artificial urinary sphincter and open incision status post suprapubic cystostomy tube Elevated white blood count, trending down Elevated creatinine with chronic kidney disease, stage III possibly Hypomagnesemia, replaced History of chronic obstructive pulmonary disease, not in exacerbation Generalized weakness with gait dysfunction GI prophylaxis DVT prophylaxis Full code Plan: Recommend to continue with current medications and management with hematology theo gale. Patient is maintained on IV heparin and will transition to oral Eliquis and medications are being sent to the pharmacy per hematology to verify coverage Patient is pending a 2D echo which was ordered on 05/04/2025 and remains pending at this time. Will await echo to be done Patient evaluated by urology with no plans of intervention at this time recommending outpatient follow-up as previously scheduled PT/OT therapy evaluated the patient recommending home with home care and patient is agreeable Possible discharge planning in the next 24 to 48 hours The impression and plan of care has been dictated by Amber Barrera, nurse practitioner as directed. Dr. Blas MD I have performed a history and examination and MDM of this patient, discussed the same with the dictator, and agree with the dictator's assessment and plan as written ,documented as a scribe. Based on total visit time, I have performed more than 50% of the visit. Any additional findings or plans will be noted. Objective - Vital Signs Vital signs: Vital Signs Temp 97.9 F 05/07/25 11:46 Pulse 67 05/07/25 11:46 Resp 16 05/07/25 11:46 BP 104/68 05/07/25 11:46 Pulse Ox 91 L 05/07/25 11:55 FiO2 Intake & Output 05/06/25 05/07/25 05/07/25 18:59 06:59 18:59 Intake Total 573.638 240 Output Total 1200 650 900 Balance -626.362 -650 -660 Weight 77 kg Intake: Intake, IV Titration 215.638 Amount Heparin Sod,Pork in 0.45% 215.638 NaCl 25,000 unit In 0.45 % NaCl 1 250ml.bag @ 18 UNITS/KG/HR 14.696 mls/hr IV .Q17H1M [facility] Rx#: [id number] Oral 358 240 Output: Urine 1200 650 900 Other: Voiding Method Indwelling Catheter Indwelling Catheter Indwelling Catheter # Voids 1 # Bowel Movements 1 1 - Labs CBC & Chem 7: 05/08/25 06:14 05/08/25 06:14 Labs: Abnormal Lab Results - Last 24 Hours (Table) 05/06/25 05/07/25 05/07/25 Range/Units 14:42 05:28 05:28 RBC 3.81 L (4.40-5.60) 10*6/uL Hgb 11.6 L (13.0-17.0) g/dL Hct 35.6 L (39.6-50.0) % Immature Gran # 0.10 H (0.00-0.04) 10*3/uL APTT 58.4 H (22.0-30.0) sec Chloride 110 H (98-107) mmol/L BUN 23 H (9-20) mg/dL 05/07/ Range/Units 05:28 RBC (4.40-5.60) 10*6/uL Hgb (13.0-17.0) g/dL Hct (39.6-50.0) % Immature Gran # (0.00-0.04) 10*3/uL APTT 49.5 H (22.0-30.0) sec Chloride (98-107) mmol/L BUN (9-20) mg/dL
[2025-05-08] MEDS ORDERED: Magnesium Replacement Protocol 1 EACH MISC MISCELLANE PRN (10:23)
[2025-05-08] MEDS: MAGNESIUM SULFATE-D5W PMX 1 GM in DEXTROSE/WATER 1 100ML.BAG IVPB SCH (10:28)
--- NOTE | 2025-05-08 14:27 | P.PN ---
Subjective Progress Note Date: 05/08/25 Principal diagnosis: DVT with PE The patient states that he is feeling much better. Both his shortness of breath and right lower extremity swelling have resolved. He is weak but is able to ambulate without difficulty. He denies any pain related to the suprapubic cystostomy tube. Objective - Vital Signs Vital signs: Vital Signs Temp 97.9 F 05/08/25 07:56 Pulse 62 05/08/25 11:44 Resp 15 05/08/25 11:44 BP 103/66 05/08/25 11:44 Pulse Ox 90 L 05/08/25 11:44 FiO2 Intake & Output 05/07/25 05/08/25 05/08/25 18:59 06:59 18:59 Intake Total 240 240 Output Total 1100 450 Balance -860 -450 240 Intake: Oral 240 240 Output: Urine 1100 450 Other: Voiding Method Indwelling Catheter Indwelling Catheter # Bowel Movements 1 1 - Constitutional General appearance: Present: average body habitus, cooperative, no acute distress - Genitourinary Genitourinary Comment(s): SP tube intact, draining clear yellow urine. - Psychiatric Psychiatric: Present: A&O x's 3 - Labs CBC & Chem 7: 05/08/25 06:14 05/08/25 06:14 Labs: Abnormal Lab Results - Last 24 Hours (Table) 05/08/25 05/08/25 05/08/25 Range/Units 06:14 06:14 06:14 RBC 4.21 L (4.40-5.60) 10*6/uL Hgb 12.5 L (13.0-17.0) g/dL Hct 39.5 L (39.6-50.0) % MCHC 31.6 L (32.0-37.0) g/dL Immature Gran # 0.09 H (0.00-0.04) 10*3/uL APTT 49.3 H (22.0-30.0) sec Chloride 109 H (98-107) mmol/L BUN 27 H (9-20) mg/dL Creatinine 1.39 H (0.66-1.25) mg/dL Magnesium 1.3 L (1.6-2.3) mg/dL Assessment and Plan (1) Retention of urine, unspecified Current Visit: Yes Status: Acute Code(s): R33.9 - RETENTION OF URINE, UNSP ECIFIED SNOMED Code(s): 772189541 Plan: Patient is urologically stable for discharge. He will follow-up with me as an outpatient in 1 week for SP tube change.
[2025-05-08] MEDS: APIXABAN 5 MG TAB PO SCH (15:13)
[2025-05-08 21:57] LABS: Glucose,Whole Blood 187 mg/dL (70-110)
--- NOTE | 2025-05-08 22:55 | P.EN ---
Endotracheal Intubation Procedure Note INDICATION: respiratory failure PROCEDURE CHEMICAL PROCESS PROJECT ENGINEER: Dr. Lee CONSENT: [X] The procedure was emergent, the patient was unable to provide consent, and a designee was not immediately available. PROCEDURE SUMMARY: My hands were washed immediately prior to the procedure. I wore a surgical cap, mask with protective eyewear, gown and gloves throughout the procedure. The patient was placed on a senior research scientist including continuous pulse oximetry. Rapid Sequence Intubation was conducted. The patient received no sedation or paralytic. Using a glidescope and a size 7.5 endotracheal tube with stylet, the patient was intubated on the first attempt. The stylet was removed and cuff balloon was inflated. Appropriate endotracheal tube position was confirmed by direct visualization of vocal cord passage, fogging of the tube, CO2 colormetric indicator and symmetric breath sounds. Femoral Central Line Procedure Note INDICATION:lack of iv access, code blue PROCEDURE CHEMICAL PROCESS PROJECT ENGINEER: Dr. Lee Ultrasound Used: No, unable to obtain ultrasound in a timely fashion and anatomical positioning was used given emergent procedure CONSENT: [x] The procedure was emergent, the patient was unable to provide consent, and a designee was not immediately available. PROCEDURE SUMMARY: My hands were washed immediately prior to the procedure. I wore a surgical cap, mask with protective eyewear, sterile gown and sterile gloves throughout the procedure. The LEFT inguinal region was prepped using chlorhexidine scrub. Generalized anatomy of the femoral vein was noted. The introducer needle was inserted medial to the femoral artery, inferior to the inguinal crease and into the femoral vein. Venous blood was withdrawn. The syringe was removed and a guidewire was advanced into the introducer needle. A small incision was made at the skin surface with a scalpel and the introducer needle was exchanged for a dilator over the guidewire. After appropriate dilation was obtained, the dilator was exchanged over the wire for a 7 arabic central venous catheter. The wire was removed and the catheter was sutured in place. Estimated blood loss is 5 cc.
--- NOTE | 2025-05-08 23:01 | P.EN ---
"Code Blue Note Patient: Roel Bynum | | Date: 05/08/2025 Location: 356-1 | Code Called: 2153 | Pronounced : 2228 TIMELINE OF EVENTS 2153 - Code Blue called. Patient unresponsive with palpable pulse. 2155 - Code team arrives. Sinus bradycardia (HR 43), BP unobtainable. 2158 - Levophed infusion started at 0.08 mcg/kg/min. 2199 - Patient intubated by Dr Lee (see separate procedure note.) HR 45. 220 - No palpable pulse. PEA on [place]. Epinephrine 1mg IV given. 2205 - PEA, HR 34. 2206 - Epinephrine 1mg IV given. 2208 - Asystole on pulse check. 2208 - Emergent left femoral CVL placed by Dr. Lee (see separate procedure note.) 2210 - PEA, HR 88. Epinephrine 1mg IV given. 2211 - PEA, HR 91. Sodium bicarb 1 amp + Epinephrine 1mg IV. 221 - PEA, HR 31. Magnesium 2g IV + Epinephrine 1mg IV. 2214 - Epinephrine 1mg IV given. 2215 - ROSC achieved. HR 70 (NSR). BP unobtainable. Levophed increased to 0.15 mcg/kg/min. 7 - BP unobtainable. Levophed increased to 0.2 mcg/kg/min. HR 113. 2218 - Thready pulse. Epinephrine 1mg IV given. 2218 - Levophed increased to 0.3 mcg/kg/min. HR 117. 2220 - Family arrives (daughter, grandson). 2220 - No palpable pulse. PEA. Epinephrine 1mg IV + Levophed to 0.5 mcg/kg/min. 2223 - PEA persists. 222 - Epinephrine 1mg IV + Sodium bicarb 1 amp given. 222 - IVR rhythm. 2227 - VT on [place]. Shocked at 200J. 2227 - Epinephrine 1mg IV given. 2228 - Time of . CPR discontinued. No response to stimuli. Absent heart/breath sounds, pulses. Pupils fixed/dilated. Pronounced . ADDITIONAL NOTES Blood glucose: 187 mg/dL (time unrecorded). Family present at time of . Attending Dr. Odonnell notified via [employer]. Documented By: Dr. Lee [id number]"
[2025-05-08 23:07] VITALS: BP 115/70; PULSE 70; RESP 18; TEMP 98.3
--- NOTE | 2025-05-09 04:40 | P.PN ---
Subjective Progress Note Date: 05/08/25 This is a pleasant 74-year-old male who was recently admitted with acute DVT of the right leg and also acute pulmonary embolism. Hematology/oncology following as patient is maintained on IV heparin and will transition to Eliquis. Sending to pharmacy to verify coverage at this time. Patient also awaiting a 2D echo which has been ordered and remains pending at this time. Patient to also be evaluated by PT/OT therapy as patient is reporting weakness. Plan will likely be to go home with home care. Patient is afebrile with no reports of chest pain or shortness of breath. Patient is anxious to go home and awaiting clearance. 05/08/2025 Patient is seen in follow-up today currently awaiting 2D echo to be performed and read pending at discharge. Patient has transition to oral Eliquis and will continue on 10 mg twice daily and transition to 5 mg twice daily in 1 week. Patient reports to feeling well and anxious to go home but understanding he is awaiting for Joseph clearance. Patient family at the bedside with questions and concerns that were answered to the best of our ability. Patient is afebrile with no reports of chest pain or shortness of breath. Patient is maintained on room air and maintaining oxygen saturations above 90%. Patient has been tolerating diet with no reports of nausea or vomiting noted. Patient was evaluated by physical therapy recommending home with home care and patient is agreeable. Will await 2D echo at this time Review of systems: Constitutional: No reports of fatigue, fever, or chills Cardiovascular: No reports of chest pain or palpitations Respiratory: No reports of shortness of breath or cough GI: No reports of nausea, no reports of vomiting, no diarrhea : No reports of dysuria or retention Neurovascular: reports of generalized weakness All medications have been reviewed PHYSICAL EXAMINATION: GENERAL: The patient is alert and oriented x4, Well developed, well nourished. Elderly appearing HEENT: Pupils are round and equally reacting to light. EOMI. no scleral icterus. No conjunctival pallor. Normocephalic, atraumatic. No pharyngeal erythema. No thyromegaly. CARDIOVASCULAR: S1 and S2 muffled PULMONARY: diminished breath sounds bilaterally with no wheezing or rhonchi noted. ABDOMEN: soft. Nontender on exam. obese. non-distended, normoactive bowel sounds. No palpable organomegaly. MUSCULOSKELETAL: No joint swelling or deformity. EXTREMITIES: No cyanosis, clubbing, or pedal edema. NEUROLOGICAL: Gross neurological examination did not reveal any focal deficits. Diffuse weakness SKIN: No rashes. Assessment: Acute DVT of the right leg with acute pulmonary embolism, maintained on IV heparin and being transitioned to oral Eliquis History of recent removal of artificial urinary sphincter and open incision status post suprapubic cystostomy tube Elevated white blood count, trending down Elevated creatinine with chronic kidney disease, stage III possibly Hypomagnesemia, 1.4 and being replaced History of chronic obstructive pulmonary disease, not in exacerbation Generalized weakness with gait dysfunction GI prophylaxis DVT prophylaxis Full code Plan: Recommend to continue with current medications and management with hematology following. Patient is maintained on IV heparin and will transition to oral Eliquis today. Medications have been sent to the pharmacy per hematology to verify coverage Patient is pending a 2D echo which was ordered on 05/04/2025 and remains pending at this time. Will await echo to be done for discharge Patient evaluated by urology with no plans of intervention at this time recommending outpatient follow-up as previously scheduled PT/OT therapy evaluated the patient recommending home with home care and patient is agreeable Possible discharge planning in the next 24 hours Overall prognosis is guarded The impression and plan of care has been dictated by Amber Barrera, nurse practitioner as directed. Dr. Blas MD I have performed a history and examination and MDM of this patient, discussed the same with the dictator, and agree with the dictator's assessment and plan as written ,documented as a scribe. Based on total visit time, I have performed more than 50% of the visit. Any additional findings or plans will be noted. Objective - Vital Signs Vital signs: Vital Signs Temp 97.9 F 05/08/25 07:56 Pulse 70 05/08/25 07:56 Resp 17 05/08/25 07:56 BP 98/66 05/08/25 07:56 Pulse Ox 92 L 05/08/25 09:00 FiO2 Intake & Output 05/07/25 05/08/25 05/08/25 18:59 06:59 18:59 Intake Total 240 Output Total 1100 450 Balance -860 -450 Intake: Oral 240 Output: Urine 1100 450 Other: Voiding Method Indwelling Catheter Indwelling Catheter # Bowel Movements 1 1 - Labs CBC & Chem 7: 05/08/25 06:14 05/08/25 06:14 Labs: Abnormal Lab Results - Last 24 Hours (Table) 05/08/25 05/08/25 05/08/25 Range/Units 06:14 06:14 06:14 RBC 4.21 L (4.40-5.60) 10*6/uL Hgb 12.5 L (13.0-17.0) g/dL Hct 39.5 L (39.6-50.0) % MCHC 31.6 L (32.0-37.0) g/dL Immature Gran # 0.09 H (0.00-0.04) 10*3/uL APTT 49.3 H (22.0-30.0) sec Chloride 109 H (98-107) mmol/L BUN 27 H (9-20) mg/dL Creatinine 1.39 H (0.66-1.25) mg/dL Magnesium 1.3 L (1.6-2.3) mg/dL
--- NOTE | 2025-05-09 09:48 | CA ---
Transthoracic Echo Report Name: Roel Bynum Age: 74 Gender: M : 1950 Exam Date: 05/08/2025 09:26 Exam Location: [facility] Ht (in): 68 Wt (lb): 180 Ordering Physician: Nelia Odonnell MD Attending/Referring Phys: Puttying And Calking Supervisor Seferino Hernandez RDCS Procedure CPT: Indications: PE Cardiac Hx: Technical Quality: Technically difficult study Contrast 1: Total Dose (mL): Contrast 2: Total Dose (mL): MEASUREMENTS (Male / Female) Normal Values 2D ECHO LV Diastolic Diameter PLAX 4.1 cm 4.2 - 5.9 / 3.9 - 5.3 cm LV Systolic Diameter PLAX 3.0 cm IVS Diastolic Thickness 1.0 cm 0.6 - 1.0 / 0.6 - 0.9 cm LVPW Diastolic Thickness 1.0 cm 0.6 - 1.0 / 0.6 - 0.9 cm LV Relative Wall Thickness 0.5 RV Internal Dim ED PLAX 2.9 cm LVOT Diameter 2.4 cm LA Systolic Diameter LX 4.5 cm 3.0 - 4.0 / 2.7 - 3.8 cm LV Diastolic Volume MOD BP 68.5 cm??? 67 - 155 / 56 - 104 cm??? LV Systolic Volume MOD BP 32.9 cm??? - 58 / 19 - 49 cm??? LV Ejection Fraction MOD BP 52.0 % >= 55 % LV Cardiac Index MOD BP 1053.1 cm???/min???m??? LV Diastolic Volume MOD 4C 58.7 cm??? LV Systolic Volume MOD 4C 27.3 cm??? LV Ejection Fraction MOD 4C 53.5 % LV Cardiac Index MOD 4C 927.9 cm???/min???m??? LV Diastolic Length 4C 8.2 cm LV Systolic Length 4C 7.0 cm LV Diastolic Volume MOD 2C 75.8 cm??? LV Systolic Volume MOD 2C 39.6 cm??? LV Ejection Fraction MOD 2C 47.8 % LV Cardiac Index MOD 2C 1071.4 cm???/min???m??? LV Diastolic Length 2C 8.7 cm LV Systolic Length 2C 7.0 cm LA Volume 24.2 cm??? 18 - 58 / 22 - 52 cm??? LA Volume Index 12.1 cm???/m??? 16 - 28 cm???/m??? DOPPLER MV Area PHT 2.2 cm??? Mitral E Point Velocity 45.0 cm/s Mitral A Point Velocity 92.5 cm/s Mitral E to A Ratio 0.5 MV Deceleration Time 338.2 ms TR Peak Velocity 338.4 cm/s TR Peak Gradient 45.8 mmHg Right Atrial Pressure 5.0 mmHg Pulmonary Artery Systolic Pressu 50.8 mmHg Right Ventricular Systolic Press 50.8 mmHg FINDINGS Left Ventricle Left ventricular ejection fraction is estimated at 50-55%. Flattened septum in systole consistent with right ventricle pressure overload. Left ventricular cavity size normal. No obvious regional wall motion abnormalities. Right Ventricle Severe right ventricular dilatation. Moderate pulmonary hypertension. Right ventricular systolic pressure estimated at 51 mm hg. Right Atrium Severe right atrial dilatation. Left Atrium Mildly increased left atrial diameter. Mitral Valve Structurally normal mitral valve. No mitral stenosis. Trace mitral regurgitation. Aortic Valve Aortic valve not well visualized. No aortic stenosis. Mild aortic regurgitation. Tricuspid Valve Structurally normal tricuspid valve. No tricuspid stenosis. Moderate tricuspid regurgitation. Pulmonic Valve Structurally normal pulmonic valve. No pulmonic stenosis. Trace pulmonic regurgitation. Pericardium No pericardial effusion. Aorta Aortic annulus normal. CONCLUSIONS Normal LV function Dilated right ventricle Moderate pulmonary hypertension Moderate tricuspid regurgitation Previewed by: Dr. Simon Isaac MD (Electronically Signed) Final Date: 09 May 2025 09:47
--- NOTE | 2025-05-10 01:05 | DS ---
DISCHARGE SUMMARY The preliminary cause of is acute pulmonary embolism. HISTORY OF PRESENT ILLNESS: This 74-year-old gentleman was admitted with features of acute pulmonary embolism. The patient also had DVT of the right leg. The patient is started on IV heparin. The patient improved significantly clinically and the patient was seen by multiple consultants including Dr. Metz as well as Urology and Hematology/Oncology and Cardiology also. Care was coordinated. Please refer to the multiple consults note for further information. However, on 05/08/2025, the patient became unresponsive. Nikole hernandez was called and the patient notes resuscitation efforts. Again, please refer to the code sheet for further information. The overall prognosis remains extremely guarded throughout the hospitalization. A 2D echo showed severe LV dilatation, moderate pulmonary hypertension as well as flattened septum in systole consistent with right ventricular pressure overload. The patient was unable to undergo a CT angio because elevated creatinine. V/Q scan was done instead. Once again, please refer to the multiple progress notes and consultation notes for further details and prognosis remains extremely guarded throughout the hospital stay. MMMARINAL / IJN: [id number] / MTDD
== END 2025-05-09 04:16 | disposition expired | DRG 299 ==
LOC: EC 10:29 → SUPCPDRO 10:29 → 3SCARD 13:00 → UNDODISIN 05-09 04:13
PROVIDERS: ADMIT Hospitalist; ATTEND Hospitalist
PROC: 0BH17EZ Insertion of Endotracheal Airway into Trachea, Via Natural or Artificial Opening (ICD-10-PCS; principal; 2025-05-08)
PROC: 5A12012 Performance of Cardiac Output, Single, Manual (ICD-10-PCS; 2025-05-08)
PROC: 04HK33Z Insertion of Infusion Device into Right Femoral Artery, Percutaneous Approach (ICD-10-PCS; 2025-05-08)
DX: I82.411 Acute embolism and thrombosis of right femoral vein (principal); I26.99 Other pulmonary embolism without acute cor pulmonale; J96.90 Respiratory failure, unspecified, unspecified whether with hypoxia or hypercapnia; I27.20 Pulmonary hypertension, unspecified; J44.9 Chronic obstructive pulmonary disease, unspecified; N18.30 Chronic kidney disease, stage 3 unspecified; I12.9 Hypertensive chronic kidney disease with stage 1 through stage 4 chronic kidney disease, or unspecified chronic kidney disease; I82.4Z1 Acute embolism and thrombosis of unspecified deep veins of right distal lower extremity; I46.9 Cardiac arrest, cause unspecified; I82.811 Embolism and thrombosis of superficial veins of right lower extremity; R79.89 Other specified abnormal findings of blood chemistry; E78.5 Hyperlipidemia, unspecified; R73.03 Prediabetes; Z85.46 Personal history of malignant neoplasm of prostate; R07.1 Chest pain on breathing; E83.42 Hypomagnesemia; Z79.899 Other long term (current) drug therapy; Z82.49 Family history of ischemic heart disease and other diseases of the circulatory system; Z86.711 Personal history of pulmonary embolism; Z86.718 Personal history of other venous thrombosis and embolism; Z88.0 Allergy status to penicillin
CPT/HCPCS: 36415; 71046; 78582; 80048; 80053; 81001; 83735; 84484; 85025; 85379; 85610; 85730; 92950; 93005; 93306; 94640; 94760